=== PATIENT | male | born 1955 | race Caucasian/White ===

== ENCOUNTER 2018-01-04 06:24 | Day surgery (SDC) | payer MEDICARE ==
[~2018-01-04 06:24] MED LIST: BUPIVACAINE HCL 0.75% INJ/PF (7.5 MG/1 ML) 10 ML SDV OD PRN; KETOROLAC TROMETHAMINE 0.45% 4 DROP/0.4 ML DROPERETTE OD PRN; LIDOCAINE 4% INJ/PF (40 MG/ML) 5 ML AMPUL OD PRN
[2018-01-04] MEDS: CYCLOPENTOLATE 0.2%/PHENYLEPHRINE 1% OPH SOLN 2 ML OD PRN ×3 (07:00→07:25)
[2018-01-04] MEDS: TROPICAMIDE 1% OPH SOLN 3 ML OD PRN ×3 (07:00→07:25)
[2018-01-04] MEDS: TETRACAINE HCL 0.5% OPH SOLN 0.6 ML DROPERETTE OD PRN ×2 (07:00→07:25)
[2018-01-04] MEDS: BESIFLOXACIN HCL 0.6% OPH SUSP 5 ML BOTTLE OD PRN ×4 (07:00→08:00)
[2018-01-04] MEDS ORDERED: EPINEPHRINE INJ/PF 1 MG/1 ML AMPULE ONE ×2 (07:06→07:16)
[2018-01-04] MEDS ORDERED: LIDOCAINE 1% INJ-PF (10 MG/ML) 30 ML SDV ONE (07:06)
[2018-01-04] MEDS ORDERED: MIDAZOLAM 2 MG/2 ML INJ ONE (07:12)
[2018-01-04] MEDS: CHONDR SU A NA/HYALUR INTRAOC KIT (SURGICARE) ONE ×2 (07:51)
--- NOTE | 2018-01-04 10:31 | [facility] DISCHARGE SUMMARY E ---
[facility] Discharge Summary NAME: EULALIO LOBO AGE: 62Y ADMITTED: 01/04/2018 DISCHARGED: FINAL DIAGNOSIS: Cataract, right eye. HOSPITAL COURSE: The patient is a 62-year-old gentleman who underwent uneventful cataract extraction with intraocular lens implant, right eye on 01/04/2018. He will be discharged to home. He is instructed to resume preoperative medications, take Tylenol as needed for discomfort, to keep his eye shielded, to use Besivance, Durezol and Ilevro at 3 p.m. and 8 p.m., and to followup in my office in 1 day. DICTATING PHYSICIAN: JUWAN JOHNSON M.D. [id number] PHY#: [id number] ID: [id number] JOB#: [id number] ACCT: [id number] cc:JUWAN JOHNSON M.D. >
--- NOTE | 2018-01-04 10:31 | [facility] OPERATIVE REPORT E ---
[facility] Operative Report NAME: EULALIO LOBO AGE: 62Y DATE OF SURGERY: 01/04/2018 ROOM: [facility] Operative Report PREOPERATIVE DIAGNOSIS: CATARACT, RIGHT EYE. POSTOPERATIVE DIAGNOSIS: CATARACT, RIGHT EYE. PROCEDURE PERFORMED: PHACOEMULSIFICATION WITH POSTERIOR CHAMBER INTRAOCULAR LENS, RIGHT EYE. SURGEON: JUWAN JOHNSON MD ANESTHESIA: TOPICAL WITH MAC. INDICATIONS FOR SURGERY: Difficulty reading captions on T.V. and getting close to road signs. Best corrected visual acuity 20/40. PROCEDURE: The patient was brought to the Operating Room and placed on the operative table. Following tetracaine drops, topical anesthesia was administered. This consisted of instrument wipe pledgets soaked in a solution of 4% Xylocaine mixed with 0.75% Marcaine in a 1:2 ratio. A 2 x 1 cm pledget was placed in the superior fornix. A 1 x 1 cm pledget was placed in the inferior fornix. The eye was patched shut for 5 minutes. The patch was removed. The eye was sterilely prepped and draped in the usual manner. Lid speculum was placed in the eye. The pledgets were removed. A conjunctival peritomy was made at the 10 o'clock position. Hemostasis was obtained with bipolar cautery. A posterior limbal groove was created using a crescent knife and dissected anteriorly towards the cornea. A sharp point blade was used to create a paracentesis site at the 2 o'clock position. A 2.4 mm keratome was used to enter the anterior chamber through the groove. Viscoelastic was injected into the anterior chamber. An anterior capsulotomy was performed using Utrata forceps in a capsulorrhexis fashion. Hydrodissection and hydrodelineation were performed. Phacoemulsification was performed in evbubw-pby-skaikuh technique. A total of 1 minute 8 seconds phaco time was used. Following this, the I/A unit was used to remove residual cortex. Viscoelastic was injected into the capsular bag. Intraocular lens model [id number], 19.5 diopters, serial number [id number] was placed in the capsular bag. The I/A unit was used to remove residual viscoelastic. The wound was seen to be watertight under high and low pressure, and no sutures were placed. The intraocular lens was well centered. The pressure was adjusted in the eye to normal pressure. The 4-0 black silk sutures and lid speculum were removed. The eye was shielded after Besivance drops were placed. The patient tolerated the procedure well and was sent to the Recovery Room in good condition. DICTATING PHYSICIAN: JUWAN JOHNSON M.D. DICTATING PHYSICIAN: JUWAN JOHNSON M.D. [id number] PHY#: [id number] ID: [id number] JOB#: [id number] ACCT: [id number] cc:JUWAN JOHNSON M.D. > MTDD
== END 2018-01-04 08:38 | disposition home or self-care (01) ==
LOC: SC 06:24
PROVIDERS: ATTEND Ophthalmology
DX: H25.813 Combined forms of age-related cataract, bilateral (principal); E11.9 Type 2 diabetes mellitus without complications; H04.123 Dry eye syndrome of bilateral lacrimal glands; D31.31 Benign neoplasm of right choroid; I10 Essential (primary) hypertension; J44.9 Chronic obstructive pulmonary disease, unspecified; E78.00 Pure hypercholesterolemia, unspecified; F17.210 Nicotine dependence, cigarettes, uncomplicated; Z86.73 Personal history of transient ischemic attack (TIA), and cerebral infarction without residual deficits; I25.2 Old myocardial infarction; Z79.899 Other long term (current) drug therapy; Z79.02 Long term (current) use of antithrombotics/antiplatelets; Z88.8 Allergy status to other drugs, medicaments and biological substances; Z79.84 Long term (current) use of oral hypoglycemic drugs
CPT/HCPCS: 66984; 82962; V2632; J2250; J3490 ×4; A9270; J0171; 142

== ENCOUNTER 2018-12-05 21:33 | Inpatient (IN) | payer MEDICARE ==
[2018-12-05] MEDS ORDERED: ASPIRIN 81 MG TABLET, CHEWABLE PO ONE (21:52)
[2018-12-05] MEDS ORDERED: FUROSEMIDE INJ/PF 40 MG/4 ML SDV ONE (22:07)
[2018-12-05] MEDS ORDERED: NITROGLYCERIN 2% OINTMENT 1 GM PACKET ONE (22:09)
--- NOTE | 2018-12-05 22:17 | ER Document Report ---
ED General - General Chief Complaint: Chest Pain Stated Complaint: CHEST PAIN Time Seen by Provider: 12/05/18 22:12 Mode of Arrival: Wheelchair Information source: Patient, [facility] Records Notes: 63-year-old male with hypertension, hyperlipidemia, COPD, coronary artery disease, congestive heart failure, diabetes presents via private vehicle from home with complaint of shortness of breath and weakness. Patient states that he has been short of breath for approximately 1 week. Patient has had associated leg swelling. He denies any chest pain, fever, chills. He does admit to not eating or drinking for over the last several days. Patient does continue to use tobacco but denies the use of continuous oxygen. He states he has been compliant with his medications although he did not take his blood pressure medication tonight. TRAVEL OUTSIDE OF THE [place] IN LAST 30 DAYS: No - HPI Onset: Other Onset/Duration: Gradual, Persistent Quality of pain: No pain Severity: None Pain Level: Denies Associated symptoms: Nonproductive cough, Leg swelling, Shortness of breath, Weakness, Other - Abdominal distention. denies: Chest pain, Nausea, Vomiting Exacerbated by: Supine, Movement, Walking, Coughing, Deep breathing Relieved by: Denies Similar symptoms previously: Yes Recently seen / treated by doctor: No - Related Data Allergies/Adverse Reactions: BRILINTA Adverse Reaction (Verified 01/04/18 07:11) Dizziness Past Medical History - General Information source: Patient, Relative, [facility] Records - Social History Smoking Status: Current Every Day Smoker Cigarette use (# per day): Yes - 40 Smoking Education Provided: Yes - Smoking cessation counseling was provided for 4 minutes at the bedside Frequency of alcohol use: Former Drug Abuse: None Lives with: Alone Family History: Reviewed & Not Pertinent Patient has suicidal ideation: No Patient has homicidal ideation: No - Past Medical History Cardiac Medical History: Reports: Hx Heart Attack - 08/2016, Hx Hypertension Pulmonary Medical History: Reports: Hx COPD Denies: Hx Asthma Neurological Medical History: Reports: Hx Cerebrovascular Accident - 6-7 YRS AGO LEFT SIDE LOST FEELING,BETTER NOW. Denies: Hx Seizures GI Medical History: Denies: Hx Hepatitis, Hx Hiatal Hernia, Hx Ulcer Infectious Medical History: Denies: Hx Hepatitis Past Surgical History: Denies: Hx Open Heart Surgery, Hx Pacemaker Review of Systems - Review of Systems Constitutional: Weight gain EENT: denies: Difficulty swallowing Cardiovascular: Palpitations, Heart racing, Dyspnea, Lightheaded. denies: Chest pain Respiratory: Cough, Short of breath Gastrointestinal: Abdomen distended, Poor appetite, Poor fluid intake. denies: Nausea Genitourinary: Retention Male Genitourinary: No symptoms reported Musculoskeletal: Muscle stiffness Skin: Rash - Left axilla Hematologic/Lymphatic: No symptoms reported Neurological/Psychological: Weakness. denies: Headaches -: Yes All other systems reviewed and negative Physical Exam - Vital signs Vitals: Temp Pulse Resp BP Pulse Ox 97.3 F 154 H 32 H 141/86 H 88 L 12/05/18 21:38 12/05/18 21:38 12/05/18 21:38 12/05/18 21:38 12/05/18 21:38 Interpretation: Hypertensive, Tachycardic, Hypoxic, Tachypneic - Notes Notes: PHYSICAL EXAMINATION: GENERAL: Ill-appearing, morbidly obese, respiratory distress, pale HEAD: Atraumatic, normocephalic. EYES: Pupils equal round and reactive to light, extraocular movements intact, sc hayes anicteric, conjunctiva are normal. ENT: Nares patent, oropharynx clear without exudates. Moist mucous membranes. NECK: Normal range of motion, supple without lymphadenopathy LUNGS: Diminished breath sounds, tachypnea, hypoxia, increased work of breathing, on nasal cannula. HEART: Tachycardic, regular rhythm without murmurs ABDOMEN: Nontender but extremely distended abdomen no guarding, no rebound. No masses appreciated. Musculoskeletal: Normal range of motion, no pitting or edema. No cyanosis. NEUROLOGICAL: Cranial nerves grossly intact. Normal speech, normal gait. Normal sensory, motor exams PSYCH: Normal mood, normal affect. SKIN: Warm, Dry, normal turgor, no rashes or lesions noted. Course - Re-evaluation Re-evalutation: Laboratory 12/05/18 12/05/18 12/05/18 22:04 22:04 22:04 WBC RBC Hgb Hct MCV MCH MCHC RDW Plt Count Seg Neutrophils % Lymphocytes % Monocytes % Eosinophils % Basophils % Absolute Neutrophils Absolute Lymphocytes Absolute Monocytes Absolute Eosinophils Absolute Basophils PT 13.9 INR 1.02 APTT 106.4 H VBG pH VBG pCO2 VBG HCO3 VBG Base Excess Sodium 135.2 L Potassium 4.5 Chloride 93 L Carbon Dioxide 33 H Anion Gap 9 BUN 41 H Creatinine 1.37 H Est GFR ( Amer) > 60 Est GFR (Non-Af Amer) 52 L Glucose 120 H Lactic Acid Calcium 9.0 Total Bilirubin 0.8 Direct Bilirubin 0.3 Neonat Total Bilirubin Not Reportable Neonat Direct Bilirubin Not Reportable Neonat Indirect Bili Not Reportable AST 116 H ALT 146 H Alkaline Phosphatase 326 H Creatine Kinase 89 CK-MB (CK-2) 2.43 Troponin I 0.016 NT-Pro-B Natriuret Pep Total Protein 6.3 Albumin 3.8 12/05/18 12/05/18 12/05/18 22:04 22:04 22:04 WBC RBC Hgb Hct MCV MCH MCHC RDW Plt Count Seg Neutrophils % Lymphocytes % Monocytes % Eosinophils % Basophils % Absolute Neutrophils Absolute Lymphocytes Absolute Monocytes Absolute Eosinophils Absolute Basophils PT INR APTT VBG pH 7.29 L VBG pCO2 74.1 H* VBG HCO3 34.5 H VBG Base Excess 4.0 Sodium Potassium Chloride Carbon Dioxide Anion Gap BUN Creatinine Est GFR ( Amer) Est GFR (Non-Af Amer) Glucose Lactic Acid 1.5 Calcium Total Bilirubin Direct Bilirubin Neonat Total Bilirubin Neonat Direct Bilirubin Neonat Indirect Bili AST ALT Alkaline Phosphatase Creatine Kinase CK-MB (CK-2) Troponin I NT-Pro-B Natriuret Pep 1800 H Total Protein Albumin 12/06/18 00:02 WBC 14.0 H RBC 6.04 H Hgb 17.5 H Hct 53.5 H MCV 89 MCH 28.9 MCHC 32.6 RDW 15.3 H Plt Count 224 Seg Neutrophils % 81.1 H Lymphocytes % 10.4 L Monocytes % 7.1 Eosinophils % 0.5 Basophils % 0.9 Absolute Neutrophils 11.4 H Absolute Lymphocytes 1.5 Absolute Monocytes 1.0 Absolute Eosinophils 0.1 Absolute Basophils 0.1 PT INR APTT VBG pH VBG pCO2 VBG HCO3 VBG Base Excess Sodium Potassium Chloride Carbon Dioxide Anion Gap BUN Creatinine Est GFR ( Amer) Est GFR (Non-Af Amer) Glucose Lactic Acid Calcium Total Bilirubin Direct Bilirubin Neonat Total Bilirubin Neonat Direct Bilirubin Neonat Indirect Bili AST ALT Alkaline Phosphatase Creatine Kinase CK-MB (CK-2) Troponin I NT-Pro-B Natriuret Pep Total Protein Albumin Chest/Abdomen CTA 12/05/18 00:00 IMPRESSION: Diffuse fluid overloaded state with pleural effusions, ascites and anasarca. Cardiomegaly with no aortic dissection or aneurysm. No pulmonary embolus. No definite acute inflammatory process in the abdomen or pelvis. Chest X-Ray 12/05/18 21:52 IMPRESSION: Small bibasilar pneumonia-atelectasis and/or small right pleural effusion. Recommend CR/CT surveillance including at 7-12 weeks following initiation of any clinically warranted therapy. Abdomen/Pelvis CTA 12/05/18 22:29 IMPRESSION: Diffuse fluid overloaded state with pleural effusions, ascites and anasarca. Cardiomegaly with no aortic dissection or aneurysm. No pulmonary embolus. No definite acute inflammatory process in the abdomen or pelvis. Abdomen Ultrasound 12/05/18 22:50 IMPRESSION: Bilateral upper quadrant ascites. Temp Pulse Resp BP Pulse Ox 97.3 F 154 H 19 115/87 H 98 12/05/18 21:38 12/05/18 21:38 12/06/18 00:01 12/06/18 00:00 12/06/18 00:01 63-year-old male presents with shortness of breath and weakness that has been ongoing for several weeks. Vital signs reviewed and patient is tachypneic, tachycardic, hypoxic. Patient was 80% on room air. Patient denies continuous oxygen use at home but does admit to smoking 2 packs/cigarettes a day. Patient does have a history of hypertension, congestive heart failure and does state he has been compliant with his medication. He does receive his [facility] in [facility]. 12/05/18 22:12 Bedside ultrasound was performed and significant for diffuse B-lines in both lung mendoza indicative of interstitial edema. There is no pericardial effusion. EKG shows sinus tachycardia. Patient was initially hypoxic on room air but is now 98% on [address] patient on BiPAP. Although patient has a significantly distended belly no ascites was appreciated on bedside ultrasound. Nitropaste was placed, 40 mg of IV Lasix given. Patient received refusing Mares catheter. Patient was placed on BiPAP and VBG does show CO2 retention. BiPAP settings 12/6 at 40% oxygen. Respiratory rate at 10. On reevaluation patient is resting comfortably. Is agreeable to admission. I did speak to Dr. Monroe who has agreed to admit the patient to the [facility]. We have given the patient 0.25 mg of digoxin for his elevated heart rate. 12/06/18 00:56 - Vital Signs Vital signs: Temp Pulse Resp BP Pulse Ox 101.3 F H 116 H 13 123/80 92 12/07/18 19:26 12/07/18 18:00 12/07/18 18:15 12/07/18 18:15 12/07/18 18:15 - Laboratory Result Diagrams: 12/07/18 03:44 12/07/18 03:44 Laboratory results interpreted by me: 12/05/18 12/05/18 12/05/18 22:04 22:04 22:04 WBC RBC Hgb Hct RDW Seg Neutrophils % Lymphocytes % Absolute Neutrophils APTT 106.4 H VBG pH VBG pCO2 VBG HCO3 Sodium 135.2 L Chloride 93 L Carbon Dioxide 33 H BUN 41 H Creatinine 1.37 H Est GFR (Non-Af Amer) 52 L Glucose 120 H AST 116 H ALT 146 H Alkaline Phosphatase 326 H NT-Pro-B Natriuret Pep 1800 H Triglycerides 12/05/18 12/05/18 12/06/18 22:04 22:04 00:02 WBC 14.0 H RBC 6.04 H Hgb 17.5 H Hct 53.5 H RDW 15.3 H Seg Neutrophils % 81.1 H Lymphocytes % 10.4 L Absolute Neutrophils 11.4 H APTT VBG pH 7.29 L VBG pCO2 74.1 H* VBG HCO3 34.5 H Sodium Chloride Carbon Dioxide BUN Creatinine Est GFR (Non-Af Amer) Glucose AST ALT Alkaline Phosphatase NT-Pro-B Natriuret Pep Triglycerides 155 H - Diagnostic Test Radiology reviewed: Image reviewed, Reports reviewed - EKG Interpretation by Me EKG shows normal: Sinus rhythm Rate: Tachycardia Rhythm: NSR When compared to previous EKG there are: Previous EKG unavailable Critical Care Note - Critical Care Note Total time excluding time spent on procedures (mins): 40 - Minutes of critical care time spent in direct contact evaluating and reevaluating the patient, treating symptoms, reviewing labs and studies and speaking with family and consultants excluding any procedures Discharge - Discharge Clinical Impression: Respiratory distress, Elevated LFTs, Tachycardia, Respiratory acidosis, CO2 retention, Morbid obesity, DEAN (acute kidney injury) CHF exacerbation Qualifiers: Heart failure type: unspecified Qualified Code(s): I50.9 - Heart failure, unspecified Ascites Qualifiers: Ascites type: other type Qualified Code(s): R18.8 - Other ascites Condition: Fair Disposition: ADMITTED INPATIENT Admitting Provider: Fer (Hospitalist) Unit Admitted: [facility]
[2018-12-05 22:28] LABS: VENOUS BLOOD HCO3 34.5 mmol/L (20-32); VENOUS BLOOD PH 7.29 (7.30-7.42)
[2018-12-05 22:29] LABS: VENOUS BLOOD PCO2 74.1 mmHg (35-63)
[2018-12-05 22:31] LABS: INTERNATIONAL RATION (INR) 1.02; PROTHROMBIN TIME 13.9 SEC (11.4-15.4)
[2018-12-05 22:34] LABS: ALANINE AMINOTRANSFERASE 146 U/L (21-72); ALBUMIN 3.8 g/dL (3.5-5.0); ALKALINE PHOSPHATASE 326 U/L (38-126); ANION GAP 9 (5-19); ASPARTATE AMINO TRANSFERASE 116 U/L (17-59); BILIRUBIN,DIRECT 0.3 mg/dL (0.0-0.4); BILIRUBIN,TOTAL 0.8 mg/dL (0.2-1.3); BLOOD UREA NITROGEN 41 mg/dL (7-20); CARBON DIOXIDE 33 mmol/L (22-30); CHLORIDE 93 mmol/L (98-107); CREATINE KINASE 89 U/L (55-170); GLUCOSE 120 mg/dL (75-110); PARTIAL THROMBOPLASTIN TIME 106.4 SEC (23.5-35.8); POTASSIUM 4.5 mmol/L (3.6-5.0); SODIUM 135.2 mmol/L (137-145); TOTAL PROTEIN 6.3 g/dL (6.3-8.2)
--- NOTE | 2018-12-05 22:35 | RADIOLOGY REPORT (SQ) ---
EXAM DESCRIPTION: XR CHEST 1 VIEW COMPLETED DATE/TME: 12/05/2018 21:52 CLINICAL HISTORY: 63 years Male, cp COMPARISON: None. NUMBER OF VIEWS/TECHNIQUE: 1/AP FINDINGS: Small right basilar opacity-effusion. Small left lower retrocardiac opacity-atelectasis. Adequate lung volume, normal cardiac silhouette, and intact bony thorax. IMPRESSION: Small bibasilar pneumonia-atelectasis and/or small right pleural effusion. Recommend CR/CT surveillance including at 7-12 weeks following initiation of any clinically warranted therapy.
[2018-12-05 22:46] LABS: CREATINE KINASE MB 2.43 ng/mL (<4.55); TROPONIN I 0.016 ng/mL
--- NOTE | 2018-12-05 23:42 | EKG REPORT ---
SEVERITY:- ABNORMAL ECG - SINUS TACHYCARDIA LEFT POSTERIOR FASCICULAR BLOCK LOW VOLTAGE IN FRONTAL LEADS NONSPECIFIC T ABNORMALITIES, DIFFUSE LEADS BORDERLINE PROLONGED QT INTERVAL : Confirmed by: Ese Chavez MD 05-Dec-2018 23:42:16
--- NOTE | 2018-12-05 23:43 | RADIOLOGY REPORT (SQ) ---
CLINICAL HISTORY: pain COMPARISON: None. TECHNIQUE: CT ABDOMEN PELVIS WITHOUT THEN WITH IV CONTRAST, CT CHEST ANGIOGRAPHY WITHOUT THEN WITH IV CONTRAST on 12/05/2018 10:29 PM CDT. MIPS reconstructions were generated. This exam was performed according to our departmental dose-optimization program, which includes automated exposure control, adjustment of the mA and/or kV according to patient size and/or use of iterative reconstruction technique. FINDINGS: Vascular: Thoracic aorta is normal in course and caliber without aneurysm or dissection. Pulmonary arteries are adequately opacified without acute or chronic filling defects. Abdominal aorta is normal in course and caliber without aneurysm. Pelvic arteries are patent without aneurysm or occlusion. The heart is moderately enlarged. There is no pericardial effusion. Intrathoracic lymph nodes are not enlarged. There is a small left pleural effusion. There is a moderate right pleural effusion. Central airways are patent. There is bibasilar atelectasis. There may be mild component of pulmonary edema. Abdomen: The liver is normal in appearance. There is no biliary dilatation. Gallbladder is normal in appearance. There is bilateral upper quadrant ascites. The pancreas and spleen are normal in appearance. The adrenal glands and kidneys are unremarkable. There is no free air. There is no retroperitoneal adenopathy. Pelvis: There is no bowel obstruction. Urinary bladder is unremarkable. There is small to moderate amount of free pelvic fluid. There are bilateral fat-containing inguinal hernias, with small amount of fluid on the right as well. Appendix is normal. There is mild diffuse body wall anasarca. Skeleton: There are no acute osseous findings. No suspicious bony lesions. IMPRESSION: Diffuse fluid overloaded state with pleural effusions, ascites and anasarca. Cardiomegaly with no aortic dissection or aneurysm. No pulmonary embolus. No definite acute inflammatory process in the abdomen or pelvis.
[2018-12-06] MEDS ORDERED: FUROSEMIDE INJ/PF 40 MG/4 ML SDV IV ONE (00:09)
[2018-12-06] MEDS ORDERED: NITROGLYCERIN 2% OINTMENT 1 GM PACKET TP ONE (00:10)
[2018-12-06 00:11] LABS: ABSOLUTE BASOPHILS # (AUTO) 0.1 10^3/uL (0.0-0.2); ABSOLUTE EOSINOPHILS # (AUTO) 0.1 10^3/uL (0.0-0.6); ABSOLUTE LYMPHOCYTES (AUTO) 1.5 10^3/uL (0.5-4.7); ABSOLUTE NEUT (AUTO) 11.4 10^3/uL (1.7-8.2); BASOPHILS % (AUTO) 0.9 % (0-2); EOSINOPHILS % (AUTO) 0.5 % (0-6); HEMATOCRIT 53.5 % (37.9-51.0); HEMOGLOBIN 17.5 g/dL (13.5-17.0); LYMPHOCYTES % (AUTO) 10.4 % (13-45); MEAN CORPUSCULAR HEMOGLOBIN 28.9 pg (27.0-33.4); MEAN CORPUSCULAR HGB CONC 32.6 g/dL (32.0-36.0); MEAN CORPUSCULAR VOLUME 89 fl (80-97); MONOCYTES % (AUTO) 7.1 % (3-13); PLATELET COUNT 224 10^3/uL (150-450); RED BLOOD COUNT 6.04 10^6/uL (4.35-5.55); RED CELL DISTRIBUTION WIDTH 15.3 % (11.5-14.0); SEGMENTED NEUTROPHILS % (AUTO) 81.1 % (42-78); TOTAL CELLS COUNTED % (AUTO) 100 %
--- NOTE | 2018-12-06 00:41 | RADIOLOGY REPORT (SQ) ---
CLINICAL HISTORY: ruq pain assess for ascites COMPARISON: None. TECHNIQUE: US ABDOMEN LIMITED on 12/05/2018 10:50 PM CDT FINDINGS: Liver is enlarged and fatty in echogenicity. There is moderate ascites in the right upper and left upper quadrants. Gallbladder is normally distended without wall thickening or gallstones. Common bile duct measures 3 mm. Right kidney measures 12.7 cm without hydronephrosis. IMPRESSION: Bilateral upper quadrant ascites.
[2018-12-06] MEDS ORDERED: DIGOXIN INJ 0.5 MG/2 ML AMPULE IV ONE ×2 (00:52→05:17)
[2018-12-06] MEDS ORDERED: ONDANSETRON HCL INJ/PF 4 MG/2 ML SDV IV PRN (01:19)
[2018-12-06] MEDS ORDERED: DEXTROSE 50%-WATER 25 GM/50 ML DISP.SYRIN IV PRN ×4 (01:19→17:02)
[2018-12-06] MEDS ORDERED: GLUCAGON,HUMAN RECOMB 1 MG INJ IM PRN ×2 (01:19→17:02)
[2018-12-06] MEDS ORDERED: MAG HYDROX/AL HYDROX/SIMETH SUSP 30 ML UDCUP PO PRN (01:19)
[2018-12-06] MEDS ORDERED: MAGNESIUM HYDROXIDE SUSP 30 ML UDCUP PO PRN (01:19)
[2018-12-06] MEDS ORDERED: DEXTROSE 40% GEL 15 GM TUBE PO PRN ×4 (01:19→17:02)
[2018-12-06] MEDS ORDERED: ACETAMINOPHEN 325 MG TABLET PO PRN (01:28)
[2018-12-06] MEDS ORDERED: LEVALBUTEROL HCL NEB 0.63 MG/3 ML AMPUL NEB PRN (01:28)
[2018-12-06] MEDS ORDERED: MORPHINE SULFATE 10 MG/ML INJ IV PRN (01:28)
[2018-12-06 02:51] LABS: FREE T3 3.55 pg/mL (2.77-5.27); FREE T4 (FREE THYROXINE) 1.49 ng/dL (0.78-2.19)
[2018-12-06 03:05] LABS: THYROID STIMULATING HORMONE 2.63 uIU/mL (0.47-4.68)
[2018-12-06] MEDS ORDERED: METOPROLOL TARTRATE PF/INJ 5 MG/5 ML SDV IV ONE ×2 (03:33→14:08)
[2018-12-06 04:13] LABS: ARTERIAL BLOOD BASE EXCESS 4.1 mmol/L; ARTERIAL BLOOD H2CO3 2.55 mmol/L (1.05-1.35); ARTERIAL BLOOD HCO3 35.9 mmol/L (20-24); ARTERIAL BLOOD O2 SATURATION 92.9 % (94-98); ARTERIAL BLOOD PH 7.24 (7.35-7.45); ARTERIAL BLOOD PO2 78.7 mmHg (80-100); ARTERIAL BLOOD TOTAL CO2 38.5 mmol/L (23-27)
[2018-12-06 04:15] LABS: ARTERIAL BLOOD FIO2 6L
[2018-12-06 04:16] LABS: ARTERIAL BLOOD PCO2 84.8 mmHg (35-45)
--- NOTE | 2018-12-06 06:15 | PDOC H&P ---
History of Present Illness Admission Date/PCP: 12/06/2018 00:18 SOREN TSAI PA-C Patient complains of: Dyspnea History of Present Illness: EULALIO LOBO is a 63 year old male who presented to the emergency room with a one-week history of dyspnea. Patient admits that for the last week he has been experiencing progressively worsening dyspnea that has become severe today. He admits the associated symptoms of swelling of his lower legs, dyspnea on exertion and anorexia for the last 4 days. He admits prior similar episodes with exacerbations of his heart failure and COPD. He admits to continued heavy cigarette smoking. He has not identified any additional aggravating or ameliorating factors for his dyspnea. In the emergency room he was found to have an elevated BNP at 1800 and his chest x-ray was consistent with mild pulmonary edema and heart failure. He was also noted to be hypoxic, hypercapnic and tachycardic. He was placed on BiPAP and treated with topical nitroglycerin paste as well as IV Lasix. He was subsequently admitted to the hospital for further evaluation and treatment. Past Medical History Cardiac Medical History: Reports: Congestive Heart Failure, Coronary Artery Disease, Myocardial Infarction - 08/2016, Hyperlipidema, Hypertension Denies: Atrial Fibrillation, DVT, Pulmonary Embolism Pulmonary Medical History: Reports: Chronic Obstructive Pulmonary Disease (COPD), Respiratory Failure Denies: Asthma EENT Medical History: Reports: Cataracts, Eyes - Dry eye syndrome Denies: Ears - Hearing aids Neurological Medical History: Reports: Ischemic CVA Denies: Hemorrhagic CVA, Multiple Sclerosis, Seizures Endocrine Medical History: Reports: Diabetes Mellitus Type 2 Denies: Diabetes Mellitus Type 1, Hyperthyroidism, Hypothyroidism Renal/ Medical History: Denies: Chronic Kidney Disease, Nephrolithiasis Malignancy Medical History: Reports: None GI Medical History: Denies: Cirrhosis, Crohn's Disease, Hepatitis, Hiatal Hernia, Ulcerative Colitis Musculoskeltal Medical History: Reports: Arthritis Denies: Gout Skin Medical History: Denies: Eczema, Psoriasis Psychiatric Medical History: Reports: Tobacco Dependency Denies: Alcohol Dependency, Substance Abuse Traumatic Medical History: Reports: None Hematology: Denies: Anemia, Bleeding Tendencies Infectious Medical History: Reports: None Past Surgical History Past Surgical History: Reports: Cardiac Catheterization, Coronary Stent, Other - Cataract surgery Social History Information Source: Patient Lives with: Spouse/Significant other Smoking Status: Former Smoker Frequency of Alcohol Use: None Hx Recreational Drug Use: No Drugs: None Hx Prescription Drug Abuse: No - Advance Directive Resuscitation Status: Full Code Surrogate healthcare decision maker:: Yazmin May Family History Family History: DM, Hypertension, Malignancy Parental Family History Reviewed: Yes Children Family History Reviewed: No Sibling(s) Family History Reviewed.: Yes Medication/Allergy Home Medications: Aspirin [Aspirin EC] 81 mg PO DAILY 12/29/17 Besifloxacin HCl [Besivance 0.6% Oph Susp 5 ml] 1 drop OP ASDIR 12/29/17 Clopidogrel Bisulfate [Clopidogrel] 75 mg PO DAILY 12/29/17 Difluprednate [Durezol] 1 drop OP ASDIR 12/29/17 Losartan Potassium 25 mg PO QHS 12/29/17 Metformin HCl 1,000 mg PO BID 12/29/17 Metoprolol Succinate 12.5 mg PO DAILY 12/29/17 Rosuvastatin Calcium 20 mg PO QHS 12/29/17 Allergies/Adverse Reactions: BRILINTA Adverse Reaction (Verified 01/04/18 07:11) Dizziness Review of Systems Constitutional: PRESENT: as per HPI, anorexia. ABSENT: chills, fever(s) Eyes: ABSENT: visual disturbances, other - Eye pain Ears: ABSENT: hearing changes, other - Ear pain Nose, Mouth, and Throat: ABSENT: mouth pain, sore throat Cardiovascular: PRESENT: as per HPI, dyspnea on exertion, edema, orthropnea. ABSENT: chest pain, palpitations Respiratory: PRESENT: dyspnea. ABSENT: cough Gastrointestinal: ABSENT: abdominal pain, constipation, diarrhea, nausea, vomiting Genitourinary: ABSENT: dysuria, hematuria Musculoskeletal: ABSENT: back pain, joint swelling, muscle weakness Integumentary: ABSENT: pruritus, rash Neurological: ABSENT: confusion, convulsions, focal weakness, memory loss, syncope Psychiatric: ABSENT: anxiety, depression Endocrine: ABSENT: cold intolerance, heat intolerance Hematologic/Lymphatic: ABSENT: easy bleeding, easy bruising Physical Exam Vital Signs: Temp Pulse Resp BP Pulse Ox 97.3 F 154 H 19 115/87 H 98 12/05/18 21:38 12/05/18 21:38 12/06/18 00:01 12/06/18 00:00 12/06/18 00:01 Intake & Output 12/04/18 12/05/18 12/06/18 23:59 23:59 23:59 Weight 150 kg General appearance: PRESENT: no acute distress, cooperative, morbidly obese, other - On BiPAP Head exam: PRESENT: atraumatic, normocephalic Eye exam: ABSENT: conjunctival injection, scleral icterus Ear exam: PRESENT: normal external ear exam. ABSENT: bleeding, drainage Mouth exam: PRESENT: dry mucosa, neck supple Neck exam: PRESENT: JVD - Mild JVD at 30 degrees bilaterally. ABSENT: thyromegaly, tracheal deviation Respiratory exam: PRESENT: decreased breath sounds - Decreased breath sounds throughout all [place], prolonged expiratory phas - Minimally prolonged expiratory phase, rales - Bibasilar rales, symmetrical, wheezes - Minimal expiratory wheezes Cardiovascular exam: PRESENT: gallop - Faint S4 gallop, RRR. ABSENT: clicks, rubs Pulses: PRESENT: normal radial pulses, normal dorsalis pedis pul Vascular exam: PRESENT: normal capillary refill. ABSENT: pallor GI/Abdominal exam: PRESENT: normal bowel sounds, soft Rectal exam: PRESENT: deferred Extremities exam: PRESENT: pedal edema - Bilateral, other - 3+ pitting pretibial edema of the bilateral lower extremities. ABSENT: joint swelling Musculoskeletal exam: ABSENT: deformity, dislocation Neurological exam: PRESENT: alert, oriented to person, oriented to time, oriented to situation, CN II-XII grossly intact, motor sensory deficit Psychiatric exam: PRESENT: appropriate affect, normal mood Skin exam: PRESENT: dry, intact, warm. ABSENT: jaundice, rash, urticaria Results Laboratory Results: 12/06/18 00:02 12/05/18 22:04 12/05/18 12/05/18 12/05/18 22:04 22:04 22:04 WBC RBC Hgb Hct MCV MCH MCHC RDW Plt Count Seg Neutrophils % Lymphocytes % Monocytes % Eosinophils % Basophils % Absolute Neutrophils Absolute Lymphocytes Absolute Monocytes Absolute Eosinophils Absolute Basophils VBG pH 7.29 L VBG pCO2 74.1 H* VBG HCO3 34.5 H VBG Base Excess 4.0 Sodium 135.2 L Potassium 4.5 Chloride 93 L Carbon Dioxide 33 H Anion Gap 9 BUN 41 H Creatinine 1.37 H Est GFR ( Amer) > 60 Est GFR (Non-Af Amer) 52 L Glucose 120 H Lactic Acid 1.5 Calcium 9.0 Total Bilirubin 0.8 AST 116 H ALT 146 H Alkaline Phosphatase 326 H Total Protein 6.3 Albumin 3.8 12/06/18 00:02 WBC 14.0 H RBC 6.04 H Hgb 17.5 H Hct 53.5 H MCV 89 MCH 28.9 MCHC 32.6 RDW 15.3 H Plt Count 224 Seg Neutrophils % 81.1 H Lymphocytes % 10.4 L Monocytes % 7.1 Eosinophils % 0.5 Basophils % 0.9 Absolute Neutrophils 11.4 H Absolute Lymphocytes 1.5 Absolute Monocytes 1.0 Absolute Eosinophils 0.1 Absolute Basophils 0.1 VBG pH VBG pCO2 VBG HCO3 VBG Base Excess Sodium Potassium Chloride Carbon Dioxide Anion Gap BUN Creatinine Est GFR ( Amer) Est GFR (Non-Af Amer) Glucose Lactic Acid Calcium Total Bilirubin AST ALT Alkaline Phosphatase Total Protein Albumin 12/05/18 12/05/18 12/05/18 22:04 22:04 22:04 Creatine Kinase 89 CK-MB (CK-2) 2.43 Troponin I 0.016 NT-Pro-B Natriuret Pep 1800 H Impressions: Chest/Abdomen CTA 12/05/18 00:00 IMPRESSION: Diffuse fluid overloaded state with pleural effusions, ascites and anasarca. Cardiomegaly with no aortic dissection or aneurysm. No pulmonary embolus. No definite acute inflammatory process in the abdomen or pelvis. Chest X-Ray 12/05/18 21:52 IMPRESSION: Small bibasilar pneumonia-atelectasis and/or small right pleural effusion. Recommend CR/CT surveillance including at 7-12 weeks following initiation of any clinically warranted therapy. Abdomen/Pelvis CTA 12/05/18 22:29 IMPRESSION: Diffuse fluid overloaded state with pleural effusions, ascites and anasarca. Cardiomegaly with no aortic dissection or aneurysm. No pulmonary embolus. No definite acute inflammatory process in the abdomen or pelvis. Assessment and Plan - Diagnosis (1) Acute on chronic congestive heart failure Qualifiers: Heart failure type: unspecified Qualified Code(s): I50.9 - Heart failure, unspecified Is this a current diagnosis for this admission?: Yes Plan: Patient will be admitted to the ICU and will treat treated aggressively for his heart failure. His respiratory status will require BiPAP and/or possible intubation due to hypercapnia. Patient will receive diuretic therapy and intravenous morphine 2 mg every 2 hours as required for alleviation of his severe dyspnea and pulmonary edema. (2) Acute respiratory failure with hypoxia and hypercapnia Is this a current diagnosis for this admission?: Yes Plan: Patient will be admitted to the ICU and will be treated with BiPAP aggressively and if unable to reduce the patient's hypercapnia satisfactorily he will require intubation and ventilation. (3) Diabetes mellitus type 2 in obese Is this a current diagnosis for this admission?: Yes Plan: Patient's diabetes will be controlled with his usual diabetic regiment and a diabetic diet. He will have before meals and at bedtime Accu-Cheks and a sliding scale insulin dosage for hyperglycemia. Hemoglobin A1c will be checked to evaluate the patient's current therapy. (4) Hypertension Qualifiers: Hypertension type: essential hypertension Qualified Code(s): I10 - Essential (primary) hypertension Is this a current diagnosis for this admission?: Yes Plan: Patient will be continued on his current antihypertensive regiment if possible. Adjustments may be required for treatment of his heart failure and/or other associated problems. (5) Coronary artery disease Qualifiers: Coronary Disease-Associated Artery/Lesion type: [place] artery [place] vs. transplanted heart: [place] heart Associated angina: without angina Qualified Code(s): I25.10 - Atherosclerotic heart disease of [place] coronary artery without angina pectoris Is this a current diagnosis for this admission?: Yes Plan: Patient be continued on his usual cardiac medications with adjustments made only as required for treatment of his congestive heart failure or other associated problems. - Time Time Spent with patient: 25-34 minutes Medications reviewed and adjusted accordingly: Yes Anticipated discharge: Home - Inpatient Certification Based on my medical assessment, after consideration of the patient's comorbidities, presenting symptoms, or acuity I expect that the services needed warrant INPATIENT care.: Yes I certify that my determination is in accordance with my understanding of Medicare's requirements for reasonable and necessary INPATIENT services [42 CFR 412.3e].: Yes Medical Necessity: Significant Comorbidiites Make Outpatient Treatment Too Risky, Need Close Monitoring Due to Risk of Patient Decompensation, Need For Continuous Telemetry Monitoring, Need for Nebulizer Therapy and Monitoring of Response, Risk of Complication if Not Cared For in Hospital
--- NOTE | 2018-12-06 06:18 | ADVANCED CARE ---
- Diagnosis (1) Acute on chronic congestive heart failure Diagnosis Current: Yes (2) Acute respiratory failure with hypoxia and hypercapnia Diagnosis Current: Yes (3) Diabetes mellitus type 2 in obese Diagnosis Current: Yes (4) Hypertension Diagnosis Current: Yes (5) Coronary artery disease Diagnosis Current: Yes Attendance: Patient and myself Resuscitation Status: Full Code Discussion: Patient wishes to be a full code in the event of a cardiac or respiratory arrest during his hospital stay. Additionally he has chosen Yazmin May as his designated surrogate medical decision maker. Care Planning Goals: 1. Patient will be full CODE STATUS. 2. Yazmin May will be his designated surrogate medical decision maker. Document(s) Completed: The following entries will be made into the patient's permanent medical record and current medical orders via EMR entry: 1. Patient will be full CODE STATUS. 2. Yazmin May will be his designated surrogate medical decision maker. Time Spent: 10 minutes
[2018-12-06] MEDS: LEVALBUTEROL HCL NEB 1.25 MG/3 ML AMPUL NEB SCH ×2 (08:42→15:53)
[2018-12-06] MEDS: BUDESONIDE NEB 0.5 MG/2 ML AMPUL NEB SCH ×2 (08:42→20:57)
[2018-12-06] MEDS: IPRATROPIUM BROMIDE 0.02% NEB 0.5 MG/2.5 ML AMPUL NEB SCH ×2 (08:42→15:53)
[2018-12-06 09:35] LABS: ARTERIAL BLOOD BASE EXCESS 1.7 mmol/L; ARTERIAL BLOOD H2CO3 2.86 mmol/L (1.05-1.35); ARTERIAL BLOOD HCO3 34.8 mmol/L (20-24); ARTERIAL BLOOD O2 SATURATION 96.1 % (94-98); ARTERIAL BLOOD PO2 105.3 mmHg (80-100); ARTERIAL BLOOD TOTAL CO2 37.7 mmol/L (23-27)
[2018-12-06 09:36] LABS: ARTERIAL BLOOD FIO2 70%
[2018-12-06 09:37] LABS: ARTERIAL BLOOD PH 7.18 (7.35-7.45)
[2018-12-06] MEDS ORDERED: PROPOFOL 1,000 MG/100 ML INFUS..BTL IV ONE (09:53)
[2018-12-06 11:24] LABS: APPEARANCE,URINE SLIGHTLY-CLOUDY; BILIRUBIN,URINE NEGATIVE (NEGATIVE); COLOR,URINE YELLOW; GLUCOSE, URINE NEGATIVE (NEGATIVE); KETONES,URINE NEGATIVE (NEGATIVE); LEUKOCYTE ESTERASE,URINE NEGATIVE (NEGATIVE); NITRITE,URINE NEGATIVE (NEGATIVE); PROTEIN,URINE 30 mg/dL (NEGATIVE); URINE SPECIFIC GRAVITY 1.026; UROBILINOGEN,URINE NEGATIVE mg/dL (<2.0)
[2018-12-06] MEDS ORDERED: MIDAZOLAM HCL 50 MG/100 ML RTUINJ ONE (11:25)
[2018-12-06] MEDS ORDERED: SUCCINYLCHOLINE CHLORIDE INJ 200 MG/10 ML VIAL ONE (11:33)
--- NOTE | 2018-12-06 11:47 | RADIOLOGY REPORT (SQ) ---
EXAM DESCRIPTION: CHEST SINGLE VIEW; KUB/ABDOMEN (SINGLE VIEW) COMPLETED DATE/TIME: 12/06/2018 11:30 am REASON FOR STUDY: Post Intubation/ ET Tube Placement; NG Tube Placement COMPARISON: 12/05/2018 NUMBER OF VIEWS: Two views. TECHNIQUE: AP portable semi-upright view of chest and view of upper abdomen. . LIMITATIONS: None. FINDINGS: LUNGS AND PLEURA: Bilateral airspace disease. Increasing opacity in the left lower lobe. No pneumothorax. MEDIASTINUM AND HEART: Stable heart size and mediastinal structures. SUPPORT DEVICES: Nasogastric tube side hole distal esophagus. Recommend advancing about 7 cm. Appro priate position of endotracheal tube. BONY STRUCTURES: No acute findings. HARDWARE: None. OTHER: No other significant finding. IMPRESSION: 1. Slightly high position of nasogastric tube. Recommend advancing 6 to 7 cm. 2. Appropriate position of endotracheal tube. No pneumothorax. Reading location - IP/workstation name: [email or web address]
[2018-12-06 12:46] LABS: ARTERIAL BLOOD BASE EXCESS 5.2 mmol/L; ARTERIAL BLOOD H2CO3 1.63 mmol/L (1.05-1.35); ARTERIAL BLOOD HCO3 32.1 mmol/L (20-24); ARTERIAL BLOOD O2 SATURATION 93.9 % (94-98); ARTERIAL BLOOD PCO2 54.2 mmHg (35-45); ARTERIAL BLOOD PH 7.39 (7.35-7.45); ARTERIAL BLOOD PO2 71.1 mmHg (80-100); ARTERIAL BLOOD TOTAL CO2 33.7 mmol/L (23-27)
[2018-12-06 12:49] LABS: ARTERIAL BLOOD FIO2 60%
[2018-12-06] MEDS: DEXTROSE 5%-WATER 250 ML with PHENYLEPHRINE HCL 40 MG IV PRN ×2 (13:45)
[2018-12-06] MEDS ORDERED: CEFTRIAXONE 1 GM/D5W RTU 1 GM/50 ML RTUPB IV SCH (14:30)
[2018-12-06] MEDS: HEPARIN SOD (PORCINE) 5,000 UNIT/ML 1 ML SYRINGE SUBCUT SCH ×2 (14:31→14:54)
[2018-12-06] MEDS: FUROSEMIDE INJ/PF 20 MG/2 ML SDV IV SCH ×2 (14:38→21:34)
[2018-12-06] MEDS: DOCUSATE SODIUM 100 MG CAPSULE PO SCH ×2 (14:39→18:43)
[2018-12-06] MEDS: METFORMIN HCL 500 MG TABLET PO SCH ×2 (14:42→18:40)
[2018-12-06] MEDS: METOPROLOL SUCCINATE 25 MG TAB.SR.24H PO SCH (14:43)
[2018-12-06] MEDS: SPIRONOLACTONE 25 MG TABLET PO SCH (14:52)
[2018-12-06] MEDS: PREDNISONE 20 MG TABLET PO SCH (14:52)
[2018-12-06] MEDS: ASPIRIN 81 MG TABLET, ENT COATED PO SCH (14:52)
[2018-12-06] MEDS: CLOPIDOGREL BISULFATE 75 MG TABLET PO SCH (14:53)
[2018-12-06] MEDS: FAMOTIDINE 20 MG TABLET PO SCH ×2 (14:53→21:34)
[2018-12-06] MEDS ORDERED: DILTIAZEM HCL/D5W 125 MG/125 ML RTUINJ IV PRN ×2 (15:58→16:15)
--- NOTE | 2018-12-06 15:59 | RADIOLOGY REPORT (SQ) ---
EXAM DESCRIPTION: KUB/ABDOMEN (SINGLE VIEW) COMPLETED DATE/TIME: 12/06/2018 3:49 pm REASON FOR STUDY: NG Tube Placement COMPARISON: Earlier same day. NUMBER OF VIEWS: One view. TECHNIQUE: Supine radiographic image of the upper abdomen acquired. LIMITATIONS: None. FINDINGS: Nasogastric tube tip overlies the gastroesophageal junction. Recommend advancing 10 cm. Appearance otherwise unchanged. IMPRESSION: High position of nasogastric tube. Reading location - IP/workstation name: [email or web address]
[2018-12-06] MEDS ORDERED: ESMOLOL HCL/SOD CL 2,500 MG/250 ML RTUINJ IV ONE (16:37)
--- NOTE | 2018-12-06 17:29 | PDOC PROGRESS REPORT ---
Subjective Progress Note for:: 12/06/18 Subjective:: Assumed care. This is a 63-year-old male who was admitted earlier today. He has a past medical history of CHF with unknown EF and COPD. Initially presented with oh 1 week history of increasing shortness of breath. In the ER, he was noted to be hypoxic, hypercapnic and tachycardic. CT did show congestion. He was initially placed on BiPAP was also given topical nitro and IV Lasix. Upon encounter this morning in the ICU, patient was noted to be obtunded. He is not arousable to painful stimuli. Stat ABG showed worsening PCO2 of 94. Patient was promptly intubated due to worsening hypercapnic respiratory failure. He was initially tachycardic and hypertensive. He was started on propofol and started dropping his pressures. This was switched to Versed and he was also started on low-dose Jeancarlos-Synephrine. 2D echo was also ordered. Later this afternoon, patient went into atrial flutter. He was started on Cardizem drip. Cardiology was also consulted and recommended switching Cardizem drip to a small drip due to low EF and echo. Reason For Visit: ACUTE ON CHRONIC CONGESTIVE HEART FAILURE, ACUTE Physical Exam Vital Signs: Temp Pulse Resp BP Pulse Ox 100.2 F 159 H 20 89/66 L 100 12/06/18 13:35 12/06/18 14:00 12/06/18 14:00 12/06/18 14:00 12/06/18 14:00 Intake & Output 12/05/18 12/06/18 12/07/18 06:59 06:59 06:59 Intake Total 25 Output Total 235 Balance -210 Weight 330 lb 11.094 oz 332 lb 14.368 oz General appearance: PRESENT: other - Intubated, sedated Head exam: PRESENT: atraumatic, normocephalic Eye exam: PRESENT: conjunctiva pink, EOMI, PERRLA. ABSENT: scleral icterus Ear exam: PRESENT: normal external ear exam Neck exam: ABSENT: carotid bruit, JVD, lymphadenopathy, thyromegaly Respiratory exam: PRESENT: rales, rhonchi. ABSENT: wheezes Cardiovascular exam: PRESENT: RRR. ABSENT: diastolic murmur, rubs, systolic mu rmur Pulses: PRESENT: normal dorsalis pedis pul GI/Abdominal exam: PRESENT: normal bowel sounds, soft. ABSENT: distended, guarding, mass, organolmegaly, rebound, tenderness Rectal exam: PRESENT: deferred Extremities exam: PRESENT: +2 edema Neurological exam: PRESENT: other - Intubated, sedated Results Laboratory Results: 12/06/18 00:02 12/05/18 22:04 12/05/18 12/05/18 12/05/18 22:04 22:04 22:04 WBC RBC Hgb Hct MCV MCH MCHC RDW Plt Count Seg Neutrophils % Lymphocytes % Monocytes % Eosinophils % Basophils % Absolute Neutrophils Absolute Lymphocytes Absolute Monocytes Absolute Eosinophils Absolute Basophils Carbonic Acid HCO3/H2CO3 Ratio ABG pH ABG pCO2 ABG pO2 ABG HCO3 ABG O2 Saturation ABG Base Excess VBG pH 7.29 L VBG pCO2 74.1 H* VBG HCO3 34.5 H VBG Base Excess 4.0 FiO2 Sodium 135.2 L Potassium 4.5 Chloride 93 L Carbon Dioxide 33 H Anion Gap 9 BUN 41 H Creatinine 1.37 H Est GFR ( Amer) > 60 Est GFR (Non-Af Amer) 52 L Glucose 120 H Lactic Acid 1.5 Calcium 9.0 Total Bilirubin 0.8 AST 116 H ALT 146 H Alkaline Phosphatase 326 H Total Protein 6.3 Albumin 3.8 Triglycerides TSH Free T4 Free T3 pg/mL Urine Color Urine Appearance Urine pH Ur Specific [place] Urine Protein Urine Glucose (UA) Urine Ketones Urine Blood Urine Nitrite Ur Leukocyte Esterase Urine WBC (Auto) 12/05/18 12/05/18 12/06/18 22:04 22:04 00:02 WBC 14.0 H RBC 6.04 H Hgb 17.5 H Hct 53.5 H MCV 89 MCH 28.9 MCHC 32.6 RDW 15.3 H Plt Count 224 Seg Neutrophils % 81.1 H Lymphocytes % 10.4 L Monocytes % 7.1 Eosinophils % 0.5 Basophils % 0.9 Absolute Neutrophils 11.4 H Absolute Lymphocytes 1.5 Absolute Monocytes 1.0 Absolute Eosinophils 0.1 Absolute Basophils 0.1 Carbonic Acid HCO3/H2CO3 Ratio ABG pH ABG pCO2 ABG pO2 ABG HCO3 ABG O2 Saturation ABG Base Excess VBG pH VBG pCO2 VBG HCO3 VBG Base Excess FiO2 Sodium Potassium Chloride Carbon Dioxide Anion Gap BUN Creatinine Est GFR ( Amer) Est GFR (Non-Af Amer) Glucose Lactic Acid Calcium Total Bilirubin AST ALT Alkaline Phosphatase Total Protein Albumin Triglycerides 155 H TSH 2.63 Free T4 1.49 Free T3 pg/mL 3.55 Urine Color Urine Appearance Urine pH Ur Specific [place] Urine Protein Urine Glucose (UA) Urine Ketones Urine Blood Urine Nitrite Ur Leukocyte Esterase Urine WBC (Auto) 12/06/18 12/06/18 12/06/18 03:24 03:38 09:10 WBC RBC Hgb Hct MCV MCH MCHC RDW Plt Count Seg Neutrophils % Lymphocytes % Monocytes % Eosinophils % Basophils % Absolute Neutrophils Absolute Lymphocytes Absolute Monocytes Absolute Eosinophils Absolute Basophils Carbonic Acid 2.55 H 2.86 H HCO3/H2CO3 Ratio 14:1 12:1 ABG pH 7.24 L 7.18 L* ABG pCO2 84.8 H* 95.0 H* ABG pO2 78.7 L 105.3 H ABG HCO3 35.9 H 34.8 H ABG O2 Saturation 92.9 L 96.1 ABG Base Excess 4.1 1.7 VBG pH VBG pCO2 VBG HCO3 VBG Base Excess FiO2 6L 70% Sodium Potassium Chloride Carbon Dioxide Anion Gap BUN Creatinine Est GFR ( Amer) Est GFR (Non-Af Amer) Glucose Lactic Acid Calcium Total Bilirubin AST ALT Alkaline Phosphatase Total Protein Albumin Triglycerides TSH Free T4 Free T3 pg/mL Urine Color YELLOW Urine Appearance SLIGHTLY-CLOUDY Urine pH 5.0 Ur Specific [place] 1.026 Urine Protein 30 H Urine Glucose (UA) NEGATIVE Urine Ketones NEGATIVE Urine Blood SMALL H Urine Nitrite NEGATIVE Ur Leukocyte Esterase NEGATIVE Urine WBC (Auto) 3 12/06/18 12:25 WBC RBC Hgb Hct MCV MCH MCHC RDW Plt Count Seg Neutrophils % Lymphocytes % Monocytes % Eosinophils % Basophils % Absolute Neutrophils Absolute Lymphocytes Absolute Monocytes Absolute Eosinophils Absolute Basophils Carbonic Acid 1.63 H HCO3/H2CO3 Ratio 19:1 ABG pH 7.39 ABG pCO2 54.2 H ABG pO2 71.1 L ABG HCO3 32.1 H ABG O2 Saturation 93.9 L ABG Base Excess 5.2 VBG pH VBG pCO2 VBG HCO3 VBG Base Excess FiO2 60% Sodium Potassium Chloride Carbon Dioxide Anion Gap BUN Creatinine Est GFR ( Amer) Est GFR (Non-Af Amer) Glucose Lactic Acid Calcium Total Bilirubin AST ALT Alkaline Phosphatase Total Protein Albumin Triglycerides TSH Free T4 Free T3 pg/mL Urine Color Urine Appearance Urine pH Ur Specific [place] Urine Protein Urine Glucose (UA) Urine Ketones Urine Blood Urine Nitrite Ur Leukocyte Esterase Urine WBC (Auto) 12/05/18 12/05/18 12/05/18 22:04 22:04 22:04 Creatine Kinase 89 CK-MB (CK-2) 2.43 Troponin I 0.016 NT-Pro-B Natriuret Pep 1800 H Impressions: Chest/Abdomen CTA 12/05/18 00:00 IMPRESSION: Diffuse fluid overloaded state with pleural effusions, ascites and anasarca. Cardiomegaly with no aortic dissection or aneurysm. No pulmonary embolus. No definite acute inflammatory process in the abdomen or pelvis. Abdomen/Pelvis CTA 12/05/18 22:29 IMPRESSION: Diffuse fluid overloaded state with pleural effusions, ascites and anasarca. Cardiomegaly with no aortic dissection or aneurysm. No pulmonary embolus. No definite acute inflammatory process in the abdomen or pelvis. Abdomen Ultrasound 12/05/18 22:50 IMPRESSION: Bilateral upper quadrant ascites. Chest X-Ray 12/06/18 10:12 IMPRESSION: 1. Slightly high position of nasogastric tube. Recommend advancing 6 to 7 cm. 2. Appropriate position of endotracheal tube. No pneumothorax. Assessment and Plan - Diagnosis (1) Acute respiratory failure with hypoxia and hypercapnia Is this a current diagnosis for this admission?: Yes Plan: Acute hypoxic respiratory failure is likely more from CHF exacerbation although there is a possible component of COPD exacerbation contributing to hypercapnia. Patient failed BiPAP therapy and is now intubated. Repeat ABG. (2) Acute on chronic congestive heart failure Qualifiers: Heart failure type: unspecified Qualified Code(s): I50.9 - Heart failure, unspecified Is this a current diagnosis for this admission?: Yes Plan: Continue IV Lasix. (3) Atrial flutter Is this a current diagnosis for this admission?: Yes Plan: Cardizem drip switched to esmolol drip. Appreciate cardio recommendations. CT head ordered. If this comes back negative, patient will be started on Lovenox. (4) Coronary artery disease Qualifiers: Coronary Disease-Associated Artery/Lesion type: [place] artery [place] vs. transplanted heart: [place] heart Associated angina: without angina Qualified Code(s): I25.10 - Atherosclerotic heart disease of [place] coronary artery without angina pectoris Is this a current diagnosis for this admission?: Yes Plan: Continue aspirin and statin. (5) Diabetes mellitus type 2 in obese Is this a current diagnosis for this admission?: Yes Plan: Continue Accu-Cheks. Sliding scale for now. - Time Time Spent with patient: 25-34 minutes
--- NOTE | 2018-12-06 17:50 | XCELERA REPORT ---
[address] [address] Transthoracic Echocardiogram Report Name: EULALIO LOBO Age: 63 yrs Gender: Male : 1955 Patient Status: Inpatient Patient Location: ICU^603^A Study Date: 12/06/2018 04:33 PM Height: 67 in Weight: 332 lb BSA: 2.5 m2 Procedure: A complete two-dimensional transthoracic echocardiogram was performed (2D, M-mode, spectral and color flow Doppler). The study was technically difficult with many images being suboptimal in quality. There was technical limitations during this study due to patients body habitas. Reason For Study: acute pulmonary edema Ordering Physician: LUZ MARIA PIEK Performed By: Kiara Hinds Interpretation Summary Study quality suboptima with some poor images secondary to patient's body habitus. Lack of contrast opacification limits evaluation for wall motion, intracardiac mass or thrombus. Difficult to accurately assess LVEF in patient with atrial fibrillation with varying ventricular rate and at HR>130 bpm EF appears seeverly decreased but once HR < 120 bpm LVEF visually estimated at 35-40%. RV systolc function appears mild to moderately decreased. The transmitral spectral Doppler flow pattern is abnormal for age The left atrium is borderline dilated. The aortic valve is not well visualized but apppears focally thickened/ calcified with doppler data provided of suggestive of any significant stenosis. There is a mild amount of tricuspid regurgitation There is no pericardial effusion. IVC dilated with decreased respiratory variation as patient on ventilator support. The aortic root is normal size. MMode/2D Measurements & Calculations RVDd: 3.8 cm LVIDd: 5.7 cm FS: 14.9 % Ao root diam: IVSd: 1.0 cm LVIDs: 4.8 cm EDV(Teich): 3.6 cm 159.7 ml Ao root area: LVPWd: 1.0 cm ESV(Teich): 9.9 cm2 109.9 ml LA dimension: EF(Teich): 31.2 % 4.2 cm LVLd ap4: 10.3 cm SV(MOD-sp4): EDV(MOD-sp4): 57.0 ml 148.0 ml LVLs ap4: 8.5 cm ESV(MOD-sp4): 91.0 ml EF(MOD-sp4): 38.5 % Doppler Measurements & Calculations MV E max thanh: MV P1/2t max thanh: Ao V2 max: LV V1 max P.2 cm/sec 92.2 cm/sec 135.5 cm/sec 5.5 mmHg MV P1/2t: 45.4 msec Ao max P.3 mmHg LV V1 max: MVA(P1/2t): 4.8 cm2 117.3 cm/sec MV dec slope: 595.3 cm/sec2 MV dec time: 0.14 sec PA V2 max: TR max thanh: MV P1/2t-pr_phl: 51.5 cm/sec 234.6 cm/sec 45.4 msec PA max PG: TR max P.0 mmHg 1.1 mmHg Left Ventricle The left ventricle is borderline dilated. LV EF is 35-40%. Left ventricular systolic function is moderately reduced. The transmitral spectral Doppler flow pattern is abnormal for age. Right Ventricle The right ventricular systolic function is mild to moderately reduced. Atria The right atrium is normal. The left atrium is borderline dilated. Mitral Valve The mitral valve leaflets appear thickened, but open well. There is mild mitral leaflet calcification. There is a trace to mild amount of mitral regurgitation. Aortic Valve The aortic valve is calcified. The aortic valve is not well visualized secondary to technical limitations. There is a peak gradient of 7 mm of Hg. Tricuspid Valve The tricuspid valve is not well visualized secondary to technical limitations. There is a mild amount of tricuspid regurgitation. RVSP could not be estimated. Pulmonic Valve The pulmonic valve is not well visualized. Great Vessels The aortic root is not well visualized. The aortic root is normal size. IVC dilated with decreased respiratory variation as patient on ventilator support. Effusions There is no pericardial effusion. : LUZ MARIA PIKE > William Reilly
--- NOTE | 2018-12-06 18:35 | PDOC CONSULTATION ---
Consultation Consult Date: 12/06/18 Provider Consulted: LUZ MARIA PIKE Consult reason:: atrial fibrillation/flutter History of Present Illness Admission Date/PCP: 12/06/18 01:20 SOREN TSAI PA-C History of Present Illness: EULALIO LOBO is a 63 year old male With medical history of diabetes mellitus, hypertension, coronary artery disease status post inferior ST elevation HI in August 2016 with occluded proximal RCA status post PCI, ischemic cardiomyopathy with EF of 35 to 40%, hypertension, morbid obesity, COPD no history of chronic cigarette smoking was admitted with progressive shortness of breath and weakness for the past 1 week. Earlier in the day patient got intubated for hypercapnic respiratory failure. We were consulted for management of atrial fibrillation flutter with hypotension. Patient seen at bedside and currently on ventilator support. Patient's sister is at bedside was his current healthcare proxy. According to the sister patient lives by himself and is a very private person. She claims that he has had swelling in his lower extremities for quite a while and has been progressively getting short of breath. There is previous history of alcohol use but no recent alcohol intoxication or recreational drug use. No family history available at this point of time. According to sister patient has a history of CVA few years ago with left-sided numbness and tingling with loss of sensation. Past Medical History Cardiac Medical History: Reports: Congestive Heart Failure, Coronary Artery Disease, Myocardial Infarction - 08/2016, Hyperlipidema, Hypertension Denies: Atrial Fibrillation, DVT, Pulmonary Embolism Pulmonary Medical History: Reports: Chronic Obstructive Pulmonary Disease (COPD), Respiratory Failure Denies: Asthma EENT Medical History: Reports: Cataracts, Eyes - Dry eye syndrome Denies: Ears - Hearing aids Neurological Medical History: Reports: Ischemic CVA Denies: Hemorrhagic CVA, Multiple Sclerosis, Seizures Endocrine Medical History: Reports: Diabetes Mellitus Type 2 Denies: Diabetes Mellitus Type 1, Hyperthyroidism, Hypothyroidism Renal/ Medical History: Denies: Chronic Kidney Disease, Nephrolithiasis Malignancy Medical History: Reports: None GI Medical History: Denies: Cirrhosis, Crohn's Disease, Hepatitis, Hiatal Hernia, Ulcerative Colitis Musculoskeltal Medical History: Reports: Arthritis Denies: Gout Skin Medical History: Denies: Eczema, Psoriasis Psychiatric Medical History: Reports: Tobacco Dependency Denies: Alcohol Dependency, Substance Abuse Traumatic Medical History: Reports: None Hematology: Denies: Anemia, Sickle Cell Disease, Bleeding Tendencies Infectious Medical History: Reports: None Past Surgical History Past Surgical History: Reports: Cardiac Catheterization, Coronary Stent, Other - Cataract surgery Denies: Pacemaker Social History Information Source: Relative Lives with: Alone, Spouse/Significant other Smoking Status: Current Every Day Smoker Cigarettes Packs Per Day: 1 Cigars Per Day: 0 Pipes Per Day: 0 Number of Years Smokin Last Time Smoked: 12/05/18 Frequency of Alcohol Use: Rare Hx Recreational Drug Use: No Drugs: None Hx Prescription Drug Abuse: No - Advance Directive Resuscitation Status: Full Code Family History Family History: DM, Hypertension, Malignancy Parental Family History Reviewed: No Children Family History Reviewed: No Sibling(s) Family History Reviewed.: Yes Medication/Allergy Home Medications: Clopidogrel Bisulfate [Clopidogrel] 75 mg PO DAILY 12/29/17 Losartan Potassium 25 mg PO QHS 12/29/17 Metformin HCl 1,000 mg PO BID 12/29/17 Metoprolol Succinate 12.5 mg PO DAILY 12/29/17 Rosuvastatin Calcium 20 mg PO QHS 12/29/17 Furosemide [Lasix 40 mg Tablet] 40 mg PO QAM 12/06/18 Allergies/Adverse Reactions: BRILINTA Adverse Reaction (Verified 01/04/18 07:11) Dizziness Review of Systems Constitutional: PRESENT: weakness Cardiovascular: PRESENT: dyspnea on exertion, edema, orthropnea Respiratory: PRESENT: dyspnea Neurological: PRESENT: confusion Physical Exam Vital Signs: Temp Pulse Resp BP Pulse Ox 100.8 F H 120 H 20 115/74 96 12/06/18 17:20 12/06/18 16:00 12/06/18 17:20 12/06/18 17:20 12/06/18 17:20 Intake & Output 12/05/18 12/06/18 12/07/18 06:59 06:59 06:59 Intake Total 40 Output Total 535 Balance -495 Weight 150 kg 151 kg General appearance: PRESENT: morbidly obese, other - Patient on mechanical ventilator support at this time. Head exam: PRESENT: other - ET tube and NG tube in situ. Neck exam: PRESENT: other - Short obese neck. JVD not visualized. Respiratory exam: PRESENT: other - Bilateral air entry decreased at bases with occasional cramps. Morbidly obese chest wall. Cardiovascular exam: PRESENT: irregular rhythm, tachycardia Pulses: PRESENT: other - Distal pedal pulses not palpable. Cold lower extremities with no skin discoloration noted. GI/Abdominal exam: PRESENT: soft, other - Morbidly obese abdomen. Bowel sounds faintly positive. Extremities exam: PRESENT: +2 edema Neurological exam: PRESENT: other - Patient currently sedated but moves extremities randomly. Results Laboratory Results: 12/06/18 00:02 12/05/18 22:04 12/05/18 12/05/18 12/05/18 22:04 22:04 22:04 WBC RBC Hgb Hct MCV MCH MCHC RDW Plt Count Seg Neutrophils % Lymphocytes % Monocytes % Eosinophils % Basophils % Absolute Neutrophils Absolute Lymphocytes Absolute Monocytes Absolute Eosinophils Absolute Basophils Carbonic Acid HCO3/H2CO3 Ratio ABG pH ABG pCO2 ABG pO2 ABG HCO3 ABG O2 Saturation ABG Base Excess VBG pH 7.29 L VBG pCO2 74.1 H* VBG HCO3 34.5 H VBG Base Excess 4.0 FiO2 Sodium 135.2 L Potassium 4.5 Chloride 93 L Carbon Dioxide 33 H Anion Gap 9 BUN 41 H Creatinine 1.37 H Est GFR ( Amer) > 60 Est GFR (Non-Af Amer) 52 L Glucose 120 H Lactic Acid 1.5 Calcium 9.0 Total Bilirubin 0.8 AST 116 H ALT 146 H Alkaline Phosphatase 326 H Total Protein 6.3 Albumin 3.8 Triglycerides TSH Free T4 Free T3 pg/mL Urine Color Urine Appearance Urine pH Ur Specific [place] Urine Protein Urine Glucose (UA) Urine Ketones Urine Blood Urine Nitrite Ur Leukocyte Esterase Urine WBC (Auto) 12/05/18 12/05/18 12/06/18 22:04 22:04 00:02 WBC 14.0 H RBC 6.04 H Hgb 17.5 H Hct 53.5 H MCV 89 MCH 28.9 MCHC 32.6 RDW 15.3 H Plt Count 224 Seg Neutrophils % 81.1 H Lymphocytes % 10.4 L Monocytes % 7.1 Eosinophils % 0.5 Basophils % 0.9 Absolute Neutrophils 11.4 H Absolute Lymphocytes 1.5 Absolute Monocytes 1.0 Absolute Eosinophils 0.1 Absolute Basophils 0.1 Carbonic Acid HCO3/H2CO3 Ratio ABG pH ABG pCO2 ABG pO2 ABG HCO3 ABG O2 Saturation ABG Base Excess VBG pH VBG pCO2 VBG HCO3 VBG Base Excess FiO2 Sodium Potassium Chloride Carbon Dioxide Anion Gap BUN Creatinine Est GFR ( Amer) Est GFR (Non-Af Amer) Glucose Lactic Acid Calcium Total Bilirubin AST ALT Alkaline Phosphatase Total Protein Albumin Triglycerides 155 H TSH 2.63 Free T4 1.49 Free T3 pg/mL 3.55 Urine Color Urine Appearance Urine pH Ur Specific [place] Urine Protein Urine Glucose (UA) Urine Ketones Urine Blood Urine Nitrite Ur Leukocyte Esterase Urine WBC (Auto) 12/06/18 12/06/18 12/06/18 03:24 03:38 09:10 WBC RBC Hgb Hct MCV MCH MCHC RDW Plt Count Seg Neutrophils % Lymphocytes % Monocytes % Eosinophils % Basophils % Absolute Neutrophils Absolute Lymphocytes Absolute Monocytes Absolute Eosinophils Absolute Basophils Carbonic Acid 2.55 H 2.86 H HCO3/H2CO3 Ratio 14:1 12:1 ABG pH 7.24 L 7.18 L* ABG pCO2 84.8 H* 95.0 H* ABG pO2 78.7 L 105.3 H ABG HCO3 35.9 H 34.8 H ABG O2 Saturation 92.9 L 96.1 ABG Base Excess 4.1 1.7 VBG pH VBG pCO2 VBG HCO3 VBG Base Excess FiO2 6L 70% Sodium Potassium Chloride Carbon Dioxide Anion Gap BUN Creatinine Est GFR ( Amer) Est GFR (Non-Af Amer) Glucose Lactic Acid Calcium Total Bilirubin AST ALT Alkaline Phosphatase Total Protein Albumin Triglycerides TSH Free T4 Free T3 pg/mL Urine Color YELLOW Urine Appearance SLIGHTLY-CLOUDY Urine pH 5.0 Ur Specific [place] 1.026 Urine Protein 30 H Urine Glucose (UA) NEGATIVE Urine Ketones NEGATIVE Urine Blood SMALL H Urine Nitrite NEGATIVE Ur Leukocyte Esterase NEGATIVE Urine WBC (Auto) 3 12/06/18 12:25 WBC RBC Hgb Hct MCV MCH MCHC RDW Plt Count Seg Neutrophils % Lymphocytes % Monocytes % Eosinophils % Basophils % Absolute Neutrophils Absolute Lymphocytes Absolute Monocytes Absolute Eosinophils Absolute Basophils Carbonic Acid 1.63 H HCO3/H2CO3 Ratio 19:1 ABG pH 7.39 ABG pCO2 54.2 H ABG pO2 71.1 L ABG HCO3 32.1 H ABG O2 Saturation 93.9 L ABG Base Excess 5.2 VBG pH VBG pCO2 VBG HCO3 VBG Base Excess FiO2 60% Sodium Potassium Chloride Carbon Dioxide Anion Gap BUN Creatinine Est GFR ( Amer) Est GFR (Non-Af Amer) Glucose Lactic Acid Calcium Total Bilirubin AST ALT Alkaline Phosphatase Total Protein Albumin Triglycerides TSH Free T4 Free T3 pg/mL Urine Color Urine Appearance Urine pH Ur Specific [place] Urine Protein Urine Glucose (UA) Urine Ketones Urine Blood Urine Nitrite Ur Leukocyte Esterase Urine WBC (Auto) 12/05/18 12/05/18 12/05/18 22:04 22:04 22:04 Creatine Kinase 89 CK-MB (CK-2) 2.43 Troponin I 0.016 NT-Pro-B Natriuret Pep 1800 H Impressions: Chest/Abdomen CTA 12/05/18 00:00 IMPRESSION: Diffuse fluid overloaded state with pleural effusions, ascites and anasarca. Cardiomegaly with no aortic dissection or aneurysm. No pulmonary embolus. No definite acute inflammatory process in the abdomen or pelvis. Abdomen/Pelvis CTA 12/05/18 22:29 IMPRESSION: Diffuse fluid overloaded state with pleural effusions, ascites and anasarca. Cardiomegaly with no aortic dissection or aneurysm. No pulmonary embolus. No definite acute inflammatory process in the abdomen or pelvis. Abdomen Ultrasound 12/05/18 22:50 IMPRESSION: Bilateral upper quadrant ascites. Chest X-Ray 12/06/18 10:12 IMPRESSION: 1. Slightly high position of nasogastric tube. Recommend advancing 6 to 7 cm. 2. Appropriate position of endotracheal tube. No pneumothorax. KUB X-Ray 12/06/18 15:18 IMPRESSION: High position of nasogastric tube. Assessment & Plan - Diagnosis (2) Acute on chronic congestive heart failure Qualifiers: Heart failure type: unspecified Qualified Code(s): I50.9 - Heart failure, unspecified Is this a current diagnosis for this admission?: Yes (4) Diabetes mellitus type 2 in obese Is this a current diagnosis for this admission?: Yes (6) Coronary artery disease Qualifiers: Coronary Disease-Associated Artery/Lesion type: [place] artery [place] vs. transplanted heart: iroquois heart Associated angina: without angina Qualified Code(s): I25.10 - Atherosclerotic heart disease of [place]ro[place] coronary artery without angina pectoris Is this a current diagnosis for this admission?: Yes - Notes Notes: 63-year-old morbidly obese male with past medical history of CAD status post PCI 2017, COPD, chronic cigarette smoking, diabetes, hypertension admitted with acute on chronic respiratory failure with hypotension in the setting of atrial fibrillation with rapid ventricular rate. According to staff patient did have altered mental status before he got intubated. Current plan is for CAT scan of the head to rule out CVA and subsequently starting him on systemic anticoagulation for elevated chads 2 Vasc with increased risk of embolic complications in setting of atrial fibrillation. Echocardiogram done shows LVEF around 35 to 40%. Switch patient from Cardizem drip to esmolol for rate control in the setting of LV systolic dysfunction and will recommend gradual tapering of Jeancarlos-Synephrine drip once hypotension continues to improve with better rate control. Case discussed with primary care physician and patient on antibiotic coverage for possible sepsis component. Recommend close monitoring of intake output with IV diuresis as tolerated. Dr. Chavez will resume cardiology care in the morning for patient. If patient becomes hemodynamically unstable with atrial fibrillation then we will have to consider DC cardioversion. Prognosis is guarded in view of multiple comorbidities and has been explained to patient's sister. Recommend resumption of guideline directed heart failure therapy patient on as outpatient once clinical condition improves. - Time Time Spent: Greater than 70 Minutes
--- NOTE | 2018-12-06 18:41 | RADIOLOGY REPORT (SQ) ---
EXAM DESCRIPTION: CT HEAD WITHOUT COMPLETED DATE/TIME: 12/06/2018 6:30 pm REASON FOR STUDY: ams COMPARISON: None. TECHNIQUE: Axial images acquired through the brain without intravenous contrast. Images reviewed wi th bone, brain and subdural windows. Additional sagittal and coronal reconstructions were generated. Images stored on PACS. All CT scanners at this facility use dose modulation, iterative reconstruction, and/or weight based d osing when appropriate to reduce radiation dose to as low as reasonably achievable (ALARA). [facility]: Dose Right [facility]: CareDose [facility]: Dose Right [facility]: Teradose 4D [facility]: Smart HOSTEX RADIATION DOSE: CT Rad equipment meets quality standard of care and radiation dose reduction techniq ues were employed. CTDIvol: 53.2 mGy. DLP: 1044 mGy-cm. mGy. LIMITATIONS: None. FINDINGS: VENTRICLES: Normal size and contour. CEREBRUM: No masses. No hemorrhage. No midline shift. No evidence for acute infarction. There is a large area of decreased attenuation in the left middle cranial fossa. Few scattered areas of low de nsity in the white matter most likely chronic small vessel ischemic changes. CEREBELLUM: No masses. No hemorrhage. No alteration of density. No evidence for acute infarction. EXTRAAXIAL SPACES: No fluid collections. No masses. ORBITS AND GLOBE: No intra- or extraconal masses. Normal contour of globe without masses. CALVARIUM: No fracture. PARANASAL SINUSES: There is opacification of ethmoid air cells and sphenoid sinuses and to a mild deg ree the right maxillary sinus. There is considerable opacification in the nasal passages. SOFT TISSUES: No mass or hematoma. OTHER: No other significant finding. IMPRESSION: Mild chronic microvascular ischemia with no acute intracranial imaging finding. Left mi ddle cranial fossa arachnoid cyst. Sinus disease. Possible nasal polyposis. EVIDENCE OF ACUTE STROKE: NO. COMMENT: Quality ID # [id number]: Final reports with documentation of one or more dose reduction techniques (e.g., Automated exposure control, adjustment of the mA and/or kV according to patient size, use of iterative reconstruction technique) TECHNICAL DOCUMENTATION: JOB ID: [id number] [employer]- All Rights Reserved Reading location - IP/workstation name: [email or web address]
[2018-12-06] MEDS: INSULIN LISPRO 100 UNIT/ML 3 ML VIAL SUBCUT SCH (18:51)
[2018-12-06] MEDS: CEFTRIAXONE SODIUM 1,000 MG in DEXTROSE 5%-WATER 50 ML IV SCH (18:51)
[2018-12-06] MEDS: MIDAZOLAM HCL 50 MG/100 ML RTUINJ IV PRN ×2 (19:00→22:30)
[2018-12-06] MEDS: LOSARTAN POTASSIUM 25 MG TABLET PO SCH (21:33)
[2018-12-06] MEDS: ATORVASTATIN CALCIUM 40 MG TABLET PO SCH (21:34)
[2018-12-06] MEDS: ESMOLOL HCL/SOD CL 2,500 MG/250 ML RTUINJ IV PRN ×2 (21:36→23:30)
[2018-12-06] MEDS: ENOXAPARIN SODIUM INJ 120 MG/0.8 ML DISP.SYRIN SUBCUT SCH (21:46)
[2018-12-06] MEDS ORDERED: ATORVASTATIN CALCIUM 40 MG TABLET PO SCH (22:00)
[2018-12-06] MEDS ORDERED: (PENDING PHARMACY ID) (Rosuvastatin Calcium [Rosuvastatin Calcium] 20 MG) PO SCH (22:00)
[2018-12-07] MEDS: IPRATROPIUM BROMIDE 0.02% NEB 0.5 MG/2.5 ML AMPUL NEB SCH ×3 (00:23→16:14)
[2018-12-07] MEDS: LEVALBUTEROL HCL NEB 1.25 MG/3 ML AMPUL NEB SCH ×3 (00:23→16:14)
[2018-12-07] MEDS: ESMOLOL HCL/SOD CL 2,500 MG/250 ML RTUINJ IV PRN ×3 (01:00→03:52)
[2018-12-07] MEDS: INSULIN LISPRO 100 UNIT/ML 3 ML VIAL SUBCUT SCH ×4 (01:27→18:12)
[2018-12-07] MEDS: MIDAZOLAM HCL 50 MG/100 ML RTUINJ IV PRN (02:35)
[2018-12-07] MEDS ORDERED: DEXTROSE 5%-WATER 500 ML with AMIODARONE HCL 900 MG IV PRN ×2 (04:02)
[2018-12-07 04:24] LABS: HEMATOCRIT 52.2 % (37.9-51.0); HEMOGLOBIN 16.8 g/dL (13.5-17.0); MEAN CORPUSCULAR HEMOGLOBIN 28.4 pg (27.0-33.4); MEAN CORPUSCULAR HGB CONC 32.2 g/dL (32.0-36.0); MEAN CORPUSCULAR VOLUME 88 fl (80-97); RED BLOOD COUNT 5.93 10^6/uL (4.35-5.55); RED CELL DISTRIBUTION WIDTH 15.4 % (11.5-14.0); WHITE BLOOD COUNT 12.2 10^3/uL (4.0-10.5)
[2018-12-07 04:35] LABS: ANION GAP 10 (5-19); BLOOD UREA NITROGEN 40 mg/dL (7-20); CALCIUM 8.6 mg/dL (8.4-10.2); CARBON DIOXIDE 29 mmol/L (22-30); CHLORIDE 98 mmol/L (98-107); CHOLESTEROL 76.35 mg/dL (0-200); GLUCOSE 96 mg/dL (75-110); POTASSIUM 4.6 mmol/L (3.6-5.0); SODIUM 136.9 mmol/L (137-145); TRIGLYCERIDES 144 mg/dL (<150)
[2018-12-07 04:46] LABS: DIRECT LDL 40 mg/dL (<100)
[2018-12-07 04:48] LABS: ARTERIAL BLOOD BASE EXCESS 2.5 mmol/L; ARTERIAL BLOOD HCO3 26.7 mmol/L (20-24); ARTERIAL BLOOD O2 SATURATION 92.5 % (94-98); ARTERIAL BLOOD PH 7.44 (7.35-7.45); ARTERIAL BLOOD PO2 61.7 mmHg (80-100); ARTERIAL BLOOD TOTAL CO2 27.9 mmol/L (23-27)
[2018-12-07 04:49] LABS: ARTERIAL BLOOD FIO2 60%
[2018-12-07] MEDS ORDERED: AMIODARONE HCL INJ 150 MG/3 ML VIAL IV ONE ×2 (04:53→16:54)
[2018-12-07 05:00] LABS: PLATELET COUNT 229 10^3/uL (150-450)
[2018-12-07] MEDS ORDERED: AMIODARONE HCL 150 MG in DEXTROSE 5%-WATER 100 ML IV ONE (05:00)
[2018-12-07] MEDS ORDERED: SODIUM BICARBONATE 8.4% INJ 50 MEQ/50 ML DISP.SYRIN ONE (05:19)
[2018-12-07] MEDS ORDERED: GLUCAGON,HUMAN RECOMB 1 MG INJ ONE ×2 (05:22→05:23)
[2018-12-07] MEDS: DEXTROSE 5%-WATER 250 ML with NOREPINEPHRINE BITARTRATE 4 MG IV PRN ×4 (05:42→10:20)
--- NOTE | 2018-12-07 06:27 | RADIOLOGY REPORT (SQ) ---
EXAM DESCRIPTION: XR CHEST 1 VIEW COMPLETED DATE/TME: 12/07/2018 06:00 CLINICAL HISTORY: 63 years Male, ETT/OGT PLACEMENT COMPARISON: 2 days prior. NUMBER OF VIEWS/TECHNIQUE: 1/AP FINDINGS: Moderate mixed airspace and interstitial opacities. Tip of an endotracheal tube is 8 cm from the alina; recommend 3 cm advancement. Adequate appearing enteric tube partially obscured. Moderately enlarged cardiac silhouette. No pneumothorax. Stable bony thorax. IMPRESSION: Interval intubation.Tip of an endotracheal tube is 8 cm from the alina; recommend 3 cm advancement.
[2018-12-07] MEDS ORDERED: DOPAMINE HCL/DEXTROSE 5%-WATER 800 MG/250 ML RTUINJ IV ONE (06:53)
[2018-12-07] MEDS: DOPAMINE HCL 800 MG/D5W 250 ML IV PRN (07:00)
[2018-12-07] MEDS: BUDESONIDE NEB 0.5 MG/2 ML AMPUL NEB SCH ×2 (07:45→21:07)
--- NOTE | 2018-12-07 07:59 | EKG REPORT ---
SEVERITY:- ABNORMAL ECG - JUNCTIONAL TACHYCARDIA LOW VOLTAGE THROUGHOUT BORDERLINE T ABNORMALITIES, ANTERIOR LEADS : Confirmed by: Ese Chavez MD 07-Dec-2018 07:58:18
--- NOTE | 2018-12-07 07:59 | EKG REPORT ---
SEVERITY:- BORDERLINE ECG - SINUS RHYTHM LOW VOLTAGE THROUGHOUT BORDERLINE T ABNORMALITIES, ANT-LAT LEADS : Confirmed by: Ese Chavez MD 07-Dec-2018 07:58:12
--- NOTE | 2018-12-07 07:59 | EKG REPORT ---
SEVERITY:- ABNORMAL ECG - ATRIAL FLUTTER, A-RATE 306 MULTIFORM VENTRICULAR PREMATURE COMPLEXES LOW VOLTAGE IN FRONTAL LEADS NONSPECIFIC T ABNORMALITIES, LATERAL LEADS : Confirmed by: Ese Chavez MD 07-Dec-2018 07:58:26
[2018-12-07] MEDS: DEXTROSE 5%-WATER 250 ML with PHENYLEPHRINE HCL 40 MG IV PRN ×4 (08:32→10:20)
--- NOTE | 2018-12-07 10:28 | Operative Report ---
Nonrecallable Operative Report DATE OF SURGERY: 12/07/18 PREOPERATIVE DIAGNOSIS: Hypotension, cardiac arrhythmia, phlebosclerosis POSTOPERATIVE DIAGNOSIS: Same as above OPERATION: 1. Ultrasound-guided central venous puncture. 2. Left internal jugular vein central line placement SURGEON: JUANCARLOS DENNISON ANESTHESIA: Local TISSUE REMOVED OR ALTERED: None COMPLICATIONS: None apparent ESTIMATED BLOOD LOSS: Minimal PROCEDURE: Drains/implants: Left internal jugular vein central line placed at 15 cm. Procedure in detail: After informed consent was obtained from the patient's sister, the patient was laid in the Trendelenburg position in the intensive care unit. The area of the left neck and chest were prepped and draped in a normal sterile fashion. The ultrasound was used to identify the left internal jugular vein. It was compressible with normal flow. Under direct ultrasonic guidance, the internal jugular vein was cannulated with the supplied access needle. Dark venous, nonpulsatile blood was returned in the syringe. The wire was inserted into the vein easily. It was confirmed to be within the lumen of the vein using the ultrasound device. The catheter was then slid over the wire using a modified Seldinger technique. The catheter was sutured to the skin. The catheter was then aspirated and flushed x3. The aspirate was dark, venous blood that was nonpulsatile. A Biopatch and occlusive dressing were then placed. The procedure at this time was concluded. All sponge, instrument, and needle counts were correct. Condition: Critical in ICU.
[2018-12-07] MEDS ORDERED: NORMAL SALINE INJ/PF 0.9% 10 ML SDV IV PRN (10:53)
--- NOTE | 2018-12-07 11:07 | RADIOLOGY REPORT (SQ) ---
EXAM DESCRIPTION: CHEST SINGLE VIEW COMPLETED DATE/TIME: 12/07/2018 10:52 am REASON FOR STUDY: Central Line Placement COMPARISON: 12/07/2018 EXAM PARAMETERS: NUMBER OF VIEWS: One view. TECHNIQUE: Single frontal radiographic view of the chest acquired. RADIATION DOSE: NA LIMITATIONS: None. FINDINGS: LUNGS AND PLEURA: No pneumothorax. Pulmonary edema has increased. MEDIASTINUM AND HILAR STRUCTURES: No masses. Contour normal. HEART AND VASCULAR STRUCTURES: Cardiomegaly. BONES: No acute findings. HARDWARE: Endotracheal tube in good position. Left internal jugular catheter in place. OTHER: No other significant finding. IMPRESSION: Cardiomegaly with pulmonary edema. Endotracheal tube and internal jugular catheter as d escribed. TECHNICAL DOCUMENTATION: JOB ID: [id number] [employer]- All Rights Reserved Reading location - IP/workstation name: [email or web address]
[2018-12-07] MEDS: FAMOTIDINE 20 MG TABLET PO SCH ×2 (11:11→22:23)
[2018-12-07] MEDS: ASPIRIN 81 MG TABLET, ENT COATED PO SCH (11:11)
[2018-12-07] MEDS: SPIRONOLACTONE 25 MG TABLET PO SCH (11:11)
[2018-12-07] MEDS: CLOPIDOGREL BISULFATE 75 MG TABLET PO SCH (11:11)
[2018-12-07] MEDS: PREDNISONE 20 MG TABLET PO SCH (11:12)
[2018-12-07] MEDS: DOCUSATE SODIUM 100 MG CAPSULE PO SCH ×2 (11:12→17:58)
[2018-12-07] MEDS: ENOXAPARIN SODIUM INJ 120 MG/0.8 ML DISP.SYRIN SUBCUT SCH ×2 (11:12→22:17)
[2018-12-07] MEDS: FUROSEMIDE INJ/PF 20 MG/2 ML SDV IV SCH ×2 (11:12→22:23)
[2018-12-07] MEDS: CEFTRIAXONE SODIUM 1,000 MG in DEXTROSE 5%-WATER 50 ML IV SCH (11:12)
[2018-12-07] MEDS: METOPROLOL SUCCINATE 25 MG TAB.SR.24H PO SCH (11:13)
[2018-12-07 12:21] LABS: ARTERIAL BLOOD BASE EXCESS 4.3 mmol/L; ARTERIAL BLOOD FIO2 100%; ARTERIAL BLOOD H2CO3 2.02 mmol/L (1.05-1.35); ARTERIAL BLOOD HCO3 33.8 mmol/L (20-24); ARTERIAL BLOOD O2 SATURATION 83.9 % (94-98); ARTERIAL BLOOD PH 7.32 (7.35-7.45); ARTERIAL BLOOD PO2 53.1 mmHg (80-100); ARTERIAL BLOOD TOTAL CO2 35.9 mmol/L (23-27)
[2018-12-07] MEDS ORDERED: AMIODARONE HCL IV PRN ×6 (13:26→14:30)
[2018-12-07] MEDS ORDERED: WATER IV PRN ×6 (13:26→14:30)
[2018-12-07] MEDS ORDERED: DEXTROSE 5% IV PRN ×6 (13:26→14:30)
[2018-12-07] MEDS ORDERED: DEXTROSE 5%-WATER 250 ML with NOREPINEPHRINE BITARTRATE 8 MG IV PRN ×2 (13:40)
[2018-12-07] MEDS: DEXTROSE 5%-WATER 250 ML with PHENYLEPHRINE HCL 80 MG IV PRN ×4 (15:00→22:23)
[2018-12-07] MEDS ORDERED: NOREPINEPHRINE BITARTRATE INJ/PF 4 MG/4 ML SDV IV ONE (16:54)
[2018-12-07] MEDS ORDERED: EPINEPHRINE INJ 1 MG/10 ML DISP.SYRIN ONE (16:54)
--- NOTE | 2018-12-07 17:48 | ADVANCED CARE ---
- Diagnosis (1) Acute respiratory failure with hypoxia and hypercapnia Diagnosis Current: Yes (2) Acute on chronic congestive heart failure Diagnosis Current: Yes (3) Atrial flutter Diagnosis Current: Yes (4) Coronary artery disease Diagnosis Current: Yes (5) Diabetes mellitus type 2 in obese Diagnosis Current: Yes Resuscitation Status: Do Not Resuscitate Discussion: 12/07: Last night, patient went into A. fib with RVR while on esmolol drip. He was given IV amiodarone bolus and was started on amiodarone drip as well. Patient reportedly started developing bradycardia and went into PEA. Patient also required cardioversion which converted the A. fib into sinus rhythm. He required 15 minutes of chest compressions. Patient's family apparently came in and expressed he would have not wanted to be in the state. Upon encounter this morning, patient is currently requiring levophed and Jeancarlos- Synephrine. He is also on dopamine drip. Cardiology added amiodarone drip. He is not on sedation and is only minimally responsive to deep painful stimuli. Sister/DPGALLITO is at the bedside and expressed that she and the family wanted to switch him to a DO NOT RESUSCITATE status. She expressed that she will meet with the rest of the family but is leaning towards withdrawing care in the next 24 hours. Discussed comfort care measures in length and she is receptive to this. Possible comfort care measures tomorrow.
--- NOTE | 2018-12-07 17:51 | PDOC PROGRESS REPORT ---
Subjective Progress Note for:: 12/07/18 Subjective:: 12/06: Assumed care. This is a 63-year-old male who was admitted earlier today. He has a past medical history of CHF with unknown EF and COPD. Initially presented with oh 1 week history of increasing shortness of breath. In the ER, he was noted to be hypoxic, hypercapnic and tachycardic. CT did show congestion. He was initially placed on BiPAP was also given topical nitro and IV Lasix. Upon encounter this morning in the ICU, patient was noted to be obtunded. He is not arousable to painful stimuli. Stat ABG showed worsening PCO2 of 94. Patient was promptly intubated due to worsening hypercapnic respiratory failure. He was initially tachycardic and hypertensive. He was started on propofol and started dropping his pressures. This was switched to Versed and he was also started on low-dose Jeancarlos-Synephrine. 2D echo was also ordered. Later this afternoon, patient went into atrial flutter. He was started on Cardizem drip. Cardiology was also consulted and recommended switching Cardizem drip to a small drip due to low EF and echo. 12/07: Last night, patient went into A. fib with RVR while on esmolol drip. He was given IV amiodarone bolus and was started on amiodarone drip as well. Patient reportedly started developing bradycardia and went into PEA. Patient also required cardioversion which converted the A. fib into sinus rhythm. He required 15 minutes of chest compressions. Patient's family apparently came in and expressed he would have not wanted to be in the state. Upon encounter this morning, patient is currently requiring levophed and Jeancarlos- Synephrine. He is also on dopamine drip. Cardiology added amiodarone drip. He is not on sedation and is only minimally responsive to deep painful stimuli. Sister/DPGALLITO is at the bedside and expressed that she and the family wanted to switch him to a DO NOT RESUSCITATE status. She expressed that she will meet with the rest of the family but is leaning towards withdrawing care in the next 24 hours. Discussed comfort care measures in length and she is receptive to this. Possible comfort care measures tomorrow. Reason For Visit: ACUTE ON CHRONIC CONGESTIVE HEART FAILURE, ACUTE Physical Exam Vital Signs: Temp Pulse Resp BP Pulse Ox 100.6 F H 110 H 13 130/88 H 90 L 12/07/18 14:25 12/07/18 14:00 12/07/18 14:25 12/07/18 14:25 12/07/18 14:25 Intake & Output 12/06/18 12/07/18 12/08/18 06:59 06:59 06:59 Intake Total 2113 623 Output Total 1310 475 Balance 803 148 Weight 330 lb 11.094 oz 332 lb 3.786 oz General appearance: PRESENT: other - Not on sedation, slightly withdraws to pain on the painful stimuli Head exam: PRESENT: atraumatic, normocephalic Eye exam: PRESENT: conjunctiva pink, EOMI, PERRLA. ABSENT: scleral icterus Ear exam: PRESENT: normal external ear exam Mouth exam: PRESENT: moist, tongue midline Neck exam: ABSENT: carotid bruit, JVD, lymphadenopathy, thyromegaly Respiratory exam: PRESENT: rales, rhonchi. ABSENT: wheezes Cardiovascular exam: PRESENT: systolic murmur, tachycardia Pulses: PRESENT: normal dorsalis pedis pul GI/Abdominal exam: PRESENT: distended. ABSENT: ascites Rectal exam: PRESENT: deferred Neurological exam: PRESENT: other - Not on sedation, only slightly withdraws to deep painful stimuli Results Laboratory Results: 12/07/18 03:44 12/07/18 03:44 12/07/18 12/07/18 12/07/18 03:44 03:44 04:10 WBC 12.2 H RBC 5.93 H Hgb 16.8 Hct 52.2 H MCV 88 MCH 28.4 MCHC 32.2 RDW 15.4 H Plt Count 229 Carbonic Acid 1.20 HCO3/H2CO3 Ratio 22:1 ABG pH 7.44 ABG pCO2 40.0 ABG pO2 61.7 L ABG HCO3 26.7 H ABG O2 Saturation 92.5 L ABG Base Excess 2.5 FiO2 60% Sodium 136.9 L Potassium 4.6 Chloride 98 Carbon Dioxide 29 Anion Gap 10 BUN 40 H Creatinine 1.33 H Est GFR ( Amer) > 60 Est GFR (Non-Af Amer) 54 L Glucose 96 Calcium 8.6 Magnesium 2.1 Triglycerides 144 Cholesterol 76.35 LDL Cholesterol Direct 40 VLDL Cholesterol 29.0 HDL Cholesterol 23 L 12/07/18 11:55 WBC RBC Hgb Hct MCV MCH MCHC RDW Plt Count Carbonic Acid 2.02 H HCO3/H2CO3 Ratio 16:1 ABG pH 7.32 L ABG pCO2 67.0 H ABG pO2 53.1 L ABG HCO3 33.8 H ABG O2 Saturation 83.9 L ABG Base Excess 4.3 FiO2 100% Sodium Potassium Chloride Carbon Dioxide Anion Gap BUN Creatinine Est GFR ( Amer) Est GFR (Non-Af Amer) Glucose Calcium Magnesium Triglycerides Cholesterol LDL Cholesterol Direct VLDL Cholesterol HDL Cholesterol 12/05/18 12/05/18 12/05/18 22:04 22:04 22:04 Creatine Kinase 89 CK-MB (CK-2) 2.43 Troponin I 0.016 NT-Pro-B Natriuret Pep 1800 H Impressions: Chest/Abdomen CTA 12/05/18 00:00 IMPRESSION: Diffuse fluid overloaded state with pleural effusions, ascites and anasarca. Cardiomegaly with no aortic dissection or aneurysm. No pulmonary embolus. No definite acute inflammatory process in the abdomen or pelvis. Abdomen/Pelvis CTA 12/05/18 22:29 IMPRESSION: Diffuse fluid overloaded state with pleural effusions, ascites and anasarca. Cardiomegaly with no aortic dissection or aneurysm. No pulmonary embolus. No definite acute inflammatory process in the abdomen or pelvis. Abdomen Ultrasound 12/05/18 22:50 IMPRESSION: Bilateral upper quadrant ascites. KUB X-Ray 12/06/18 15:18 IMPRESSION: High position of nasogastric tube. Head CT 12/06/18 16:01 IMPRESSION: Mild chronic microvascular ischemia with no acute intracranial imaging finding. Left middle cranial fossa arachnoid cyst. Sinus disease. Possible nasal polyposis. EVIDENCE OF ACUTE STROKE: NO. Chest X-Ray 12/07/18 10:19 IMPRESSION: Cardiomegaly with pulmonary edema. Endotracheal tube and internal jugular catheter as described. Assessment and Plan - Diagnosis (1) Acute respiratory failure with hypoxia and hypercapnia Is this a current diagnosis for this admission?: Yes Plan: Currently intubated. Pulmonology following. (2) Cardiogenic shock Is this a current diagnosis for this admission?: Yes Plan: Currently on Levophed, dopamine drip and jeancarlos-drip. Also on amiodarone drip. Appreciate cardio recommendations. (3) PEA (Pulseless electrical activity) Is this a current diagnosis for this admission?: Yes Plan: S/P 15 minutes of ACLS last night. (4) Acute on chronic congestive heart failure Qualifiers: Heart failure type: unspecified Qualified Code(s): I50.9 - Heart failure, unspecified Is this a current diagnosis for this admission?: Yes Plan: Lasix currently on hold due to low blood pressures. (5) Atrial flutter Is this a current diagnosis for this admission?: Yes Plan: On amiodarone drip. (6) Coronary artery disease Qualifiers: Coronary Disease-Associated Artery/Lesion type: [place] artery [place] vs. transplanted heart: [place] heart Associated angina: without angina Qualified Code(s): I25.10 - Atherosclerotic heart disease of [place] coronary artery without angina pectoris Is this a current diagnosis for this admission?: Yes Plan: Continue aspirin and statin. (7) Diabetes mellitus type 2 in obese Is this a current diagnosis for this admission?: Yes Plan: Continue Accu-Cheks. Sliding scale for now. - Time Time Spent with patient: 35 or more minutes
--- NOTE | 2018-12-07 21:49 | Progress Note ---
Provider Note Provider Note: CARDIOLOGY PROGRESS NOTE by Dr. Ese Chavez on 12/07/2018. The patient's entire record has been reviewed including Dr. Lomeli's consultation. The patient remains in sinus tachycardia with no recurrence of atrial fibrillation on maintenance infusion of amiodarone. The patient's blood pressure is stable, but requires 3 inotropic agents. There is no ventricular arrhythmia seen on the monitor. PHYSICAL EXAMINATION: The patient is morbidly obese. He is sedated. He does not seem to be fighting the ventilator. Selected Entries 12/07/18 12/07/18 12/07/18 16:00 16:15 16:19 Temperature 100.8 F H 100.8 F H Temperature Core Source Pulse Rate 110 H Heart Rate ( 111 Monitors) Respiratory 13 13 Rate Blood Pressure Blood Pressure 127/81 H [Right Upper Arm] Blood Pressure Mean Blood Pressure 96 Mean [Right Upper Arm] O2 Sat by Pulse 90 L 92 Oximetry Oxygen Delivery Mechanical Method ( Ventilator includes room air) Fraction of 100 Inspired Oxygen (FIO2) 12/07/18 12/07/18 12/07/18 16:20 16:55 17:40 Temperature 100.8 F H 100.8 F H 101.1 F H Temperature Source Pulse Rate Heart Rate ( 110 116 Monitors) Respiratory 13 13 Rate Blood Pressure 132/93 H 123/78 127/86 H Blood Pressure [Right Upper Arm] Blood Pressure 93 99 Mean Blood Pressure Mean [Right Upper Arm] O2 Sat by Pulse 94 92 Oximetry Oxygen Delivery Method ( includes room air) Fraction of Inspired Oxygen 100% on mechanical ventilation. (FIO2) HEAD: Is atraumatic normocephalic. EYES: Pupils are regular reactive to light. ENT is negative. NECK is supple. There is mild JVD present. Carotids are equal there is no bruit. There is no lymphadenopathy. There is no goiter. There is no accessory muscles of respiration use. LUNGS: There is diminished air entry and prolonged expiration. There is a few scattered rhonchi. There is bibasilar rales of CHF.. There is hyperresonance on percussion. HEART: S1-S2 is heard. There is no S3 gallop. There is no S4 gallop. There is systolic murmur left sternal border and the apex. There is no rub. ABDOMEN: Is obese. Bowel sounds are heard. There is no hepatospleno megaly. EXTREMITIES: Femorals and deep. Femorals are diminished. There is no femoral bruits. Leg pulses slightly diminished. There is trace pedal edema bilaterally. There is no DVT or cellulitis. [employer]TE[employer] MAN and PSYCHIATRIC examination not performed due to the patient being intubated and sedated. Labs- All tests 24 hr 12/07/18 12/07/18 12/07/18 03:44 03:44 03:44 WBC 12.2 H RBC 5.93 H Hgb 16.8 Hct 52.2 H MCV 88 MCH 28.4 MCHC 32.2 RDW 15.4 H Plt Count 229 Carbonic Acid HCO3/H2CO3 Ratio ABG pH ABG pCO2 ABG pO2 ABG HCO3 ABG Total CO2 ABG O2 Saturation ABG Base Excess FiO2 Sodium 136.9 L Potassium 4.6 Chloride 98 Carbon Dioxide 29 Anion Gap 10 BUN 40 H Creatinine 1.33 H Est GFR ( Amer) > 60 Est GFR (Non-Af Amer) 54 L Glucose 96 POC Glucose Hemoglobin A1c % 8.9 H Calcium 8.6 Magnesium 2.1 Triglycerides 144 Cholesterol 76.35 LDL Cholesterol Direct 40 VLDL Cholesterol 29.0 HDL Cholesterol 23 L 12/07/18 12/07/18 12/07/18 04:10 05:29 11:55 WBC RBC Hgb Hct MCV MCH MCHC RDW Plt Count Carbonic Acid 1.20 2.02 H HCO3/H2CO3 Ratio 22:1 16:1 ABG pH 7.44 7.32 L ABG pCO2 40.0 67.0 H ABG pO2 61.7 L 53.1 L ABG HCO3 26.7 H 33.8 H ABG Total CO2 27.9 H 35.9 H ABG O2 Saturation 92.5 L 83.9 L ABG Base Excess 2.5 4.3 FiO2 60% 100% Sodium Potassium Chloride Carbon Dioxide Anion Gap BUN Creatinine Est GFR ( Amer) Est GFR (Non-Af Amer) Glucose POC Glucose 160 H Hemoglobin A1c % Calcium Magnesium Triglycerides Cholesterol LDL Cholesterol Direct VLDL Cholesterol HDL Cholesterol 12/07/18 12/07/18 13:02 18:03 WBC RBC Hgb Hct MCV MCH MCHC RDW Plt Count Carbonic Acid HCO3/H2CO3 Ratio ABG pH ABG pCO2 ABG pO2 ABG HCO3 ABG Total CO2 ABG O2 Saturation ABG Base Excess FiO2 Sodium Potassium Chloride Carbon Dioxide Anion Gap BUN Creatinine Est GFR ( Amer) Est GFR (Non-Af Amer) Glucose POC Glucose 190 H 157 H Hemoglobin A1c % Calcium Magnesium Triglycerides Cholesterol LDL Cholesterol Direct VLDL Cholesterol HDL Cholesterol Chest/Abdomen CTA 12/05/18 00:00 IMPRESSION: Diffuse fluid overloaded state with pleural effusions, ascites and anasarca. Cardiomegaly with no aortic dissection or aneurysm. No pulmonary embolus. No definite acute inflammatory process in the abdomen or pelvis. Chest X-Ray 12/05/18 21:52 IMPRESSION: Small bibasilar pneumonia-atelectasis and/or small right pleural effusion. Recommend CR/CT surveillance including at 7-12 weeks following initiation of any clinically warranted therapy. Abdomen/Pelvis CTA 12/05/18 22:29 IMPRESSION: Diffuse fluid overloaded state with pleural effusions, ascites and anasarca. Cardiomegaly with no aortic dissection or aneurysm. No pulmonary embolus. No definite acute inflammatory process in the abdomen or pelvis. Abdomen Ultrasound 12/05/18 22:50 IMPRESSION: Bilateral upper quadrant ascites. Chest X-Ray 12/06/18 10:12 IMPRESSION: 1. Slightly high position of nasogastric tube. Recommend advancing 6 to 7 cm. 2. Appropriate position of endotracheal tube. No pneumothorax. KUB X-Ray 12/06/18 10:14 IMPRESSION: 1. Slightly high position of nasogastric tube. Recommend advancing 6 to 7 cm. 2. Appropriate position of endotracheal tube. No pneumothorax. KUB X-Ray 12/06/18 15:18 IMPRESSION: High position of nasogastric tube. Head CT 12/06/18 16:01 IMPRESSION: Mild chronic microvascular ischemia with no acute intracranial imaging finding. Left middle cranial fossa arachnoid cyst. Sinus disease. Possible nasal polyposis. EVIDENCE OF ACUTE STROKE: NO. Chest X-Ray 12/07/18 06:00 IMPRESSION: Interval intubation.Tip of an endotracheal tube is 8 cm from the alina; recommend 3 cm advancement. Chest X-Ray 12/07/18 10:19 IMPRESSION: Cardiomegaly with pulmonary edema. Endotracheal tube and internal jugular catheter as described. IMPRESSION/RECOMMENDATION: 1. Acute on chronic respiratory failure: The patient still on 100% FiO2, with still the patient being hypercapnic and hypoxic. Continue ventilatory support 2. Cardiogenic shock: Note that the patient's blood pressure is now stable on Jeancarlos-Synephrine at 180 mcg/min, he is on Levophed now down to 6 mcg/min, and dopamine at 5 mcg/min. Note it has been successful in weaning the patient down to 6 mcg/min of Levophed. Continue slowly weaning off inotropes one by one. 3. Acute on chronic systolic heart failure: Continue diuretics. Need to use diuretics cautiously. Continue the supportive inotropic agents. 4. Paroxysmal atrial fibrillation: No recurrence on amiodarone infusion. Continue the same. Watch for any bradycardia. 5.. Pulseless electrical activity: No recurrence. This probably is related to metabolic acidosis. 6.. Fever:? Source of infection. Continue antibiotics. 7. Cardiomyopathy with moderately reduced LV ejection fraction of 35 to 40%. Continue current treatment, and later we will start the patient on beta-daija and CONCHIS inhibitor as and when the blood pressure permits. 8. Coronary artery disease: History of old DE. Later would recommend nitrates. 9. Diabetes mellitus: Continue Accu-Cheks every 6 hours with sliding scale insulin coverage. 10. COPD: Suspect acute exacerbation of COPD. Possibly the patient does have underlying pneumonia. Continue antibiotics. Medications reviewed. Case discussed with the attending physician and other caregiving providers on the case. Medical decision making is of high complexity. Note after the attending physician Dr. Cottrell discussed with the patient's sister the patient has been made a DNR. Note that the patient's sister is his surrogate healthcare decision maker. Will follow
[2018-12-07] MEDS: LOSARTAN POTASSIUM 25 MG TABLET PO SCH (22:17)
[2018-12-07] MEDS: ATORVASTATIN CALCIUM 40 MG TABLET PO SCH (22:23)
[2018-12-08] MEDS: LEVALBUTEROL HCL NEB 1.25 MG/3 ML AMPUL NEB SCH ×2 (00:25→08:08)
[2018-12-08] MEDS: IPRATROPIUM BROMIDE 0.02% NEB 0.5 MG/2.5 ML AMPUL NEB SCH ×2 (00:25→08:08)
[2018-12-08] MEDS: INSULIN LISPRO 100 UNIT/ML 3 ML VIAL SUBCUT SCH ×2 (00:31→06:37)
[2018-12-08] MEDS: DOPAMINE HCL 800 MG/D5W 250 ML IV PRN (01:00)
[2018-12-08] MEDS: MIDAZOLAM HCL 50 MG/100 ML RTUINJ IV PRN (04:00)
[2018-12-08 04:38] LABS: ABSOLUTE LYMPHOCYTES (AUTO) 0.9 10^3/uL (0.5-4.7); ABSOLUTE MONOCYTES (AUTO) 1.1 10^3/uL (0.1-1.4); ABSOLUTE NEUT (AUTO) 11.9 10^3/uL (1.7-8.2); BASOPHILS % (AUTO) 0.3 % (0-2); EOSINOPHILS % (AUTO) 0.1 % (0-6); HEMOGLOBIN 18.5 g/dL (13.5-17.0); LYMPHOCYTES % (AUTO) 6.2 % (13-45); MEAN CORPUSCULAR HEMOGLOBIN 28.6 pg (27.0-33.4); MEAN CORPUSCULAR HGB CONC 32.5 g/dL (32.0-36.0); MEAN CORPUSCULAR VOLUME 88 fl (80-97); MONOCYTES % (AUTO) 8.1 % (3-13); PLATELET COUNT 178 10^3/uL (150-450); RED BLOOD COUNT 6.48 10^6/uL (4.35-5.55); RED CELL DISTRIBUTION WIDTH 15.6 % (11.5-14.0); SEGMENTED NEUTROPHILS % (AUTO) 85.3 % (42-78); TOTAL CELLS COUNTED % (AUTO) 100 %
[2018-12-08 04:44] LABS: HEMATOCRIT 57.1 % (37.9-51.0)
[2018-12-08 04:51] LABS: ARTERIAL BLOOD BASE EXCESS 6.7 mmol/L; ARTERIAL BLOOD FIO2 100%; ARTERIAL BLOOD H2CO3 1.28 mmol/L (1.05-1.35); ARTERIAL BLOOD HCO3 31.2 mmol/L (20-24); ARTERIAL BLOOD O2 SATURATION 98.4 % (94-98); ARTERIAL BLOOD PCO2 42.5 mmHg (35-45); ARTERIAL BLOOD PH 7.48 (7.35-7.45); ARTERIAL BLOOD PO2 114.7 mmHg (80-100); ARTERIAL BLOOD TOTAL CO2 32.5 mmol/L (23-27)
[2018-12-08 05:10] LABS: ANION GAP 10 (5-19); BLOOD UREA NITROGEN 39 mg/dL (7-20); CALCIUM 8.8 mg/dL (8.4-10.2); CARBON DIOXIDE 34 mmol/L (22-30); CHLORIDE 94 mmol/L (98-107); GLUCOSE 157 mg/dL (75-110); POTASSIUM 3.7 mmol/L (3.6-5.0); SODIUM 138.3 mmol/L (137-145)
[2018-12-08] MEDS: BUDESONIDE NEB 0.5 MG/2 ML AMPUL NEB SCH (08:08)
--- NOTE | 2018-12-08 09:58 | RADIOLOGY REPORT (SQ) ---
EXAM DESCRIPTION: CHEST SINGLE VIEW COMPLETED DATE/TIME: 12/08/2018 8:08 am REASON FOR STUDY: resp failure/shock COMPARISON: CT chest 12/05/2018 Chest films 12/05/2018, 12/06/2018, 12/07/2018 EXAM PARAMETERS: NUMBER OF VIEWS: One view. TECHNIQUE: Single frontal radiographic view of the chest acquired. RADIATION DOSE: NA LIMITATIONS: None. FINDINGS: LUNGS AND PLEURA: Trace bilateral pleural effusions. Pulmonary edema pattern seen on 12/07 has partially cleared. Right and left retrocardiac atelectasis is present. No pneumothorax MEDIASTINUM AND HILAR STRUCTURES: No masses. Contour normal. HEART AND VASCULAR STRUCTURES: Heart normal in size. Normal vasculature. BONES: No acute findings. HARDWARE: Endotracheal tube tip is at the upper most edge of the field of view, above the clavicles, tip is likely just below the cords. This report was called to Crystal the patient's nurse in ICU 093 0 hours 12/08/2018. Nasogastric tube tip and side port in the stomach. Left jugular central line tip likely in the left brachiocephalic vein OTHER: No other significant finding. IMPRESSION: Infra pulmonary edema pattern Persistent retrocardiac consolidation Endotracheal tube tip is just below the vocal cords at the upper edge of the field of view. This fin ding was called to the patient's nurse in ICU TECHNICAL DOCUMENTATION: JOB ID: [id number] [employer]- All Rights Reserved Reading location - IP/workstation name: [email or web address]
--- NOTE | 2018-12-08 11:12 | PDOC CONSULTATION ---
Consultation Consult Date: 12/07/18 Attending physician:: LUZ MARIA PIKE Provider Consulted: ARIAS GOEL Consult reason:: s/p c-p arrest History of Present Illness Admission Date/PCP: 12/06/18 01:20 SOREN TSAI PA-C History of Present Illness: EULALIO LOBO is a 63 year old male admitted after he presented to the ER with 7 to 10 days increasing shortness of breath and a cough is an avid smoker started on BiPAP did fairly well was subsequently sent upstairs and had a cardiopulmonary arrest she is currently intubated sedated in ICU Past Medical History Cardiac Medical History: Reports: Congestive Heart Failure, Coronary Artery Disease, Myocardial Infarction - 08/2016, Hyperlipidema, Hypertension Denies: Atrial Fibrillation, DVT, Pulmonary Embolism Pulmonary Medical History: Reports: Chronic Obstructive Pulmonary Disease (COPD), Respiratory Failure Denies: Asthma EENT Medical History: Reports: Cataracts, Eyes - Dry eye syndrome Denies: Ears - Hearing aids Neurological Medical History: Reports: Ischemic CVA Denies: Hemorrhagic CVA, Multiple Sclerosis, Seizures Endocrine Medical History: Reports: Diabetes Mellitus Type 2 Denies: Diabetes Mellitus Type 1, Hyperthyroidism, Hypothyroidism Renal/ Medical History: Denies: Chronic Kidney Disease, Nephrolithiasis Malignancy Medical History: Reports: None GI Medical History: Denies: Cirrhosis, Crohn's Disease, Hepatitis, Hiatal Hernia, Ulcerative Colitis Musculoskeltal Medical History: Reports: Arthritis Denies: Gout Skin Medical History: Denies: Eczema, Psoriasis Psychiatric Medical History: Reports: Tobacco Dependency Denies: Alcohol Dependency, Substance Abuse Traumatic Medical History: Reports: None Hematology: Denies: Anemia, Sickle Cell Disease, Bleeding Tendencies Infectious Medical History: Reports: None Past Surgical History Past Surgical History: Reports: Cardiac Catheterization, Coronary Stent, Other - Cataract surgery Denies: Pacemaker Social History Information Source: [facility] Records Lives with: Alone, Spouse/Significant other Smoking Status: Current Every Day Smoker Cigarettes Packs Per Day: 1 Cigars Per Day: 0 Pipes Per Day: 0 Number of Years Smokin Last Time Smoked: 12/05/18 Frequency of Alcohol Use: Rare Hx Recreational Drug Use: No Drugs: None Hx Prescription Drug Abuse: No - Advance Directive Resuscitation Status: Full Code Family History Family History: DM, Hypertension, Malignancy Parental Family History Reviewed: No Children Family History Reviewed: No Sibling(s) Family History Reviewed.: No Medication/Allergy Home Medications: Clopidogrel Bisulfate [Clopidogrel] 75 mg PO DAILY 12/29/17 Losartan Potassium 25 mg PO QHS 12/29/17 Metformin HCl 1,000 mg PO BID 12/29/17 Metoprolol Succinate 12.5 mg PO DAILY 12/29/17 Rosuvastatin Calcium 20 mg PO QHS 12/29/17 Furosemide [Lasix 40 mg Tablet] 40 mg PO QAM 12/06/18 Allergies/Adverse Reactions: BRILINTA Adverse Reaction (Verified 01/04/18 07:11) Dizziness Review of Systems ROS unobtainable: Due to endotracheal tube, Due to mental status Physical Exam Vital Signs: Temp Pulse Resp BP Pulse Ox 99.9 F 115 H 17 139/87 H 90 L 12/07/18 08:01 12/07/18 08:00 12/07/18 08:01 12/07/18 08:00 12/07/18 08:01 Intake & Output 12/06/18 12/07/18 12/08/18 06:59 06:59 06:59 Intake Total 2111 Output Total 1310 75 Balance 801 -75 Weight 150 kg 150.7 kg General appearance: PRESENT: no acute distress, disheveled, morbidly obese. ABSENT: cooperative Head exam: PRESENT: atraumatic, normocephalic Eye exam: PRESENT: conjunctiva pale. ABSENT: EOMI, nystagmus, scleral icterus Mouth exam: PRESENT: dry mucosa, neck supple, tongue midline, other - Endotracheal tube Neck exam: ABSENT: carotid bruit, full ROM, JVD, lymphadenopathy, meningismus, tenderness, thyromegaly, tracheal deviation, tracheostomy, other Respiratory exam: PRESENT: decreased breath sounds, prolonged expiratory phas, rales, rhonchi, unlabored, wheezes. ABSENT: retraction, stridor Cardiovascular exam: PRESENT: RRR, +S1, +S2, tachycardia Pulses: PRESENT: normal radial pulses GI/Abdominal exam: PRESENT: soft. ABSENT: mass, tenderness Extremities exam: PRESENT: +1 edema. ABSENT: calf tenderness, clubbing, joint swelling Musculoskeletal exam: ABSENT: ambulatory, deformity, dislocation Neurological exam: ABSENT: awake Skin exam: PRESENT: dry, warm Results Laboratory Results: 12/07/18 03:44 12/07/18 03:44 12/05/18 12/06/18 12/06/18 22:04 03:24 09:10 WBC RBC Hgb Hct MCV MCH MCHC RDW Plt Count Carbonic Acid 2.86 H HCO3/H2CO3 Ratio 12:1 ABG pH 7.18 L* ABG pCO2 95.0 H* ABG pO2 105.3 H ABG HCO3 34.8 H ABG O2 Saturation 96.1 ABG Base Excess 1.7 FiO2 70% Sodium Potassium Chloride Carbon Dioxide Anion Gap BUN Creatinine Est GFR ( Amer) Est GFR (Non-Af Amer) Glucose Calcium Magnesium Triglycerides 155 H Cholesterol LDL Cholesterol Direct VLDL Cholesterol HDL Cholesterol Urine Color YELLOW Urine Appearance SLIGHTLY-CLOUDY Urine pH 5.0 Ur Specific [place] 1.026 Urine Protein 30 H Urine Glucose (UA) NEGATIVE Urine Ketones NEGATIVE Urine Blood SMALL H Urine Nitrite NEGATIVE Ur Leukocyte Esterase NEGATIVE Urine WBC (Auto) 3 12/06/18 12/07/18 12/07/18 12:25 03:44 03:44 WBC 12.2 H RBC 5.93 H Hgb 16.8 Hct 52.2 H MCV 88 MCH 28.4 MCHC 32.2 RDW 15.4 H Plt Count 229 Carbonic Acid 1.63 H HCO3/H2CO3 Ratio 19:1 ABG pH 7.39 ABG pCO2 54.2 H ABG pO2 71.1 L ABG HCO3 32.1 H ABG O2 Saturation 93.9 L ABG Base Excess 5.2 FiO2 60% Sodium 136.9 L Potassium 4.6 Chloride 98 Carbon Dioxide 29 Anion Gap 10 BUN 40 H Creatinine 1.33 H Est GFR ( Amer) > 60 Est GFR (Non-Af Amer) 54 L Glucose 96 Calcium 8.6 Magnesium 2.1 Triglycerides 144 Cholesterol 76.35 LDL Cholesterol Direct 40 VLDL Cholesterol 29.0 HDL Cholesterol 23 L Urine Color Urine Appearance Urine pH Ur Specific [place] Urine Protein Urine Glucose (UA) Urine Ketones Urine Blood Urine Nitrite Ur Leukocyte Esterase Urine WBC (Auto) 12/07/18 04:10 WBC RBC Hgb Hct MCV MCH MCHC RDW Plt Count Carbonic Acid 1.20 HCO3/H2CO3 Ratio 22:1 ABG pH 7.44 ABG pCO2 40.0 ABG pO2 61.7 L ABG HCO3 26.7 H ABG O2 Saturation 92.5 L ABG Base Excess 2.5 FiO2 60% Sodium Potassium Chloride Carbon Dioxide Anion Gap BUN Creatinine Est GFR ( Amer) Est GFR (Non-Af Amer) Glucose Calcium Magnesium Triglycerides Cholesterol LDL Cholesterol Direct VLDL Cholesterol HDL Cholesterol Urine Color Urine Appearance Urine pH Ur Specific [place] Urine Protein Urine Glucose (UA) Urine Ketones Urine Blood Urine Nitrite Ur Leukocyte Esterase Urine WBC (Auto) 12/05/18 12/05/18 12/05/18 22:04 22:04 22:04 Creatine Kinase 89 CK-MB (CK-2) 2.43 Troponin I 0.016 NT-Pro-B Natriuret Pep 1800 H Impressions: Chest/Abdomen CTA 12/05/18 00:00 IMPRESSION: Diffuse fluid overloaded state with pleural effusions, ascites and anasarca. Cardiomegaly with no aortic dissection or aneurysm. No pulmonary embolus. No definite acute inflammatory process in the abdomen or pelvis. Abdomen/Pelvis CTA 12/05/18 22:29 IMPRESSION: Diffuse fluid overloaded state with pleural effusions, ascites and anasarca. Cardiomegaly with no aortic dissection or aneurysm. No pulmonary embolus. No definite acute inflammatory process in the abdomen or pelvis. Abdomen Ultrasound 12/05/18 22:50 IMPRESSION: Bilateral upper quadrant ascites. KUB X-Ray 12/06/18 15:18 IMPRESSION: High position of nasogastric tube. Head CT 12/06/18 16:01 IMPRESSION: Mild chronic microvascular ischemia with no acute intracranial imaging finding. Left middle cranial fossa arachnoid cyst. Sinus disease. Possible nasal polyposis. EVIDENCE OF ACUTE STROKE: NO. Chest X-Ray 12/07/18 06:00 IMPRESSION: Interval intubation.Tip of an endotracheal tube is 8 cm from the alina; recommend 3 cm advancement. Assessment & Plan - Diagnosis (1) Acute on chronic congestive heart failure Qualifiers: Heart failure type: unspecified Qualified Code(s): I50.9 - Heart failure, unspecified Is this a current diagnosis for this admission?: Yes Plan: central line for CVP and vasoactive drugs or pulmonary artery catheter (2) Acute on chronic respiratory failure with hypoxia and hypercapnia Is this a current diagnosis for this admission?: Yes Plan: Mechanical ventilation as needed (3) Atrial fibrillation with rapid ventricular response Is this a current diagnosis for this admission?: Yes Plan: Stable at this time (4) Cardiogenic shock Is this a current diagnosis for this admission?: Yes Plan: Plan was for CVP or pulmonary catheter (5) Hypertension Qualifiers: Hypertension type: essential hypertension Qualified Code(s): I10 - Essential (primary) hypertension Is this a current diagnosis for this admission?: Yes Plan: 3 Vasopressor agents (6) Morbid obesity Is this a current diagnosis for this admission?: Yes Plan: When stable consider nutritional consult - Time Total Critical Time (Minutes): 55
[2018-12-08] MEDS: SPIRONOLACTONE 25 MG TABLET PO SCH (11:43)
[2018-12-08] MEDS: PREDNISONE 20 MG TABLET PO SCH (11:43)
[2018-12-08] MEDS: ASPIRIN 81 MG TABLET, ENT COATED PO SCH (11:44)
[2018-12-08] MEDS: FAMOTIDINE 20 MG TABLET PO SCH (11:44)
[2018-12-08] MEDS: FUROSEMIDE INJ/PF 20 MG/2 ML SDV IV SCH (11:44)
[2018-12-08] MEDS: CLOPIDOGREL BISULFATE 75 MG TABLET PO SCH (11:44)
[2018-12-08] MEDS: DOCUSATE SODIUM 100 MG CAPSULE PO SCH (11:44)
[2018-12-08] MEDS: METOPROLOL SUCCINATE 25 MG TAB.SR.24H PO SCH (11:45)
[2018-12-08] MEDS: CEFTRIAXONE SODIUM 1,000 MG in DEXTROSE 5%-WATER 50 ML IV SCH (11:45)
[2018-12-08] MEDS: ENOXAPARIN SODIUM INJ 120 MG/0.8 ML DISP.SYRIN SUBCUT SCH (11:45)
[2018-12-08] MEDS ORDERED: LORAZEPAM INJ 2 MG/1 ML VIAL IV PRN (11:54)
[2018-12-08] MEDS ORDERED: MORPHINE SULFATE 10 MG/ML INJ IV PRN (11:55)
[2018-12-08] MEDS ORDERED: ONDANSETRON HCL INJ/PF 4 MG/2 ML SDV IV PRN (12:30)
[2018-12-08 14:38] VITALS: BP 149/94
--- NOTE | 2018-12-08 15:01 | PDOC PROGRESS REPORT ---
Subjective Progress Note for:: 12/08/18 Subjective:: 12/06: Assumed care. This is a 63-year-old male who was admitted earlier today. He has a past medical history of CHF with unknown EF and COPD. Initially presented with oh 1 week history of increasing shortness of breath. In the ER, he was noted to be hypoxic, hypercapnic and tachycardic. CT did show congestion. He was initially placed on BiPAP was also given topical nitro and IV Lasix. Upon encounter this morning in the ICU, patient was noted to be obtunded. He is not arousable to painful stimuli. Stat ABG showed worsening PCO2 of 94. Patient was promptly intubated due to worsening hypercapnic respiratory failure. He was initially tachycardic and hypertensive. He was started on propofol and started dropping his pressures. This was switched to Versed and he was also started on low-dose Jeancarlos-Synephrine. 2D echo was also ordered. Later this afternoon, patient went into atrial flutter. He was started on Cardizem drip. Cardiology was also consulted and recommended switching Cardizem drip to a small drip due to low EF and echo. 12/07: Last night, patient went into A. fib with RVR while on esmolol drip. He was given IV amiodarone bolus and was started on amiodarone drip as well. Patient reportedly started developing bradycardia and went into PEA. Patient also required cardioversion which converted the A. fib into sinus rhythm. He required 15 minutes of chest compressions. Patient's family apparently came in and expressed he would have not wanted to be in the state. Upon encounter this morning, patient is currently requiring levophed and Jeancarlos- Synephrine. He is also on dopamine drip. Cardiology added amiodarone drip. He is not on sedation and is only minimally responsive to deep painful stimuli. SisterFIDEL is at the bedside and expressed that she and the family wanted to switch him to a DO NOT RESUSCITATE status. She expressed that she will meet with the rest of the family but is leaning towards withdrawing care in the next 24 hours. Discussed comfort care measures in length and she is receptive to this. Possible comfort care measures tomorrow. 12/08: No acute event overnight. Patient remains intubated. No response today even on painful stimuli and off sedation. SisterFIDEL is on bedside wants to proceed with comfort measures today. Discussed case with Dr. Gallo who agrees to plan to transition to comfort measures. Reason For Visit: ACUTE ON CHRONIC CONGESTIVE HEART FAILURE, ACUTE Physical Exam Vital Signs: Temp Pulse Resp BP Pulse Ox 101.3 F H 112 H 15 149/94 H 98 12/08/18 14:11 12/08/18 12:00 12/08/18 14:11 12/08/18 14:11 12/08/18 14:11 Intake & Output 12/07/18 12/08/18 12/09/18 06:59 06:59 06:59 Intake Total 2113 2502 Output Total 1310 2800 1200 Balance 803 -298 -1200 Weight 332 lb 3.786 oz 327 lb 6.183 oz General appearance: PRESENT: other - Intubated Head exam: PRESENT: atraumatic, normocephalic Eye exam: PRESENT: conjunctiva pink, EOMI, PERRLA. ABSENT: scleral icterus Ear exam: PRESENT: normal external ear exam Mouth exam: PRESENT: moist, tongue midline Neck exam: ABSENT: carotid bruit, JVD, lymphadenopathy, thyromegaly Respiratory exam: PRESENT: rales, rhonchi Cardiovascular exam: PRESENT: RRR. ABSENT: diastolic murmur, rubs, systolic mu rmur Pulses: PRESENT: normal dorsalis pedis pul GI/Abdominal exam: PRESENT: normal bowel sounds, soft. ABSENT: distended, guarding, mass, organolmegaly, rebound, tenderness Rectal exam: PRESENT: deferred Neurological exam: PRESENT: other - Intubated Results Laboratory Results: 12/08/18 04:20 12/08/18 04:20 12/08/18 12/08/18 12/08/18 04:20 04:20 04:20 WBC 14.0 H RBC 6.48 H Hgb 18.5 H Hct 57.1 H MCV 88 MCH 28.6 MCHC 32.5 RDW 15.6 H Plt Count 178 Seg Neutrophils % 85.3 H Lymphocytes % 6.2 L Monocytes % 8.1 Eosinophils % 0.1 Basophils % 0.3 Absolute Neutrophils 11.9 H Absolute Lymphocytes 0.9 Absolute Monocytes 1.1 Absolute Eosinophils 0.0 Absolute Basophils 0.0 Carbonic Acid 1.28 HCO3/H2CO3 Ratio 24:1 ABG pH 7.48 H ABG pCO2 42.5 ABG pO2 114.7 H ABG HCO3 31.2 H ABG O2 Saturation 98.4 H ABG Base Excess 6.7 FiO2 100% Sodium 138.3 Potassium 3.7 Chloride 94 L Carbon Dioxide 34 H Anion Gap 10 BUN 39 H Creatinine 1.38 H Est GFR ( Amer) > 60 Est GFR (Non-Af Amer) 52 L Glucose 157 H Calcium 8.8 Magnesium 2.0 12/06/18 03:24 Catheterized Urine Urine Culture - Final Enterococcus Faecalis(Group D) 12/06/18 10:50 Tracheal Aspirate Gram Stain - Final 12/06/18 10:50 Tracheal Aspirate Sputum Culture - Final NORMAL IVELISSE 12/05/18 12/05/18 12/05/18 22:04 22:04 22:04 Creatine Kinase 89 CK-MB (CK-2) 2.43 Troponin I 0.016 NT-Pro-B Natriuret Pep 1800 H Impressions: Chest/Abdomen CTA 12/05/18 00:00 IMPRESSION: Diffuse fluid overloaded state with pleural effusions, ascites and anasarca. Cardiomegaly with no aortic dissection or aneurysm. No pulmonary embolus. No definite acute inflammatory process in the abdomen or pelvis. Abdomen/Pelvis CTA 12/05/18 22:29 IMPRESSION: Diffuse fluid overloaded state with pleural effusions, ascites and anasarca. Cardiomegaly with no aortic dissection or aneurysm. No pulmonary embolus. No definite acute inflammatory process in the abdomen or pelvis. Abdomen Ultrasound 12/05/18 22:50 IMPRESSION: Bilateral upper quadrant ascites. KUB X-Ray 12/06/18 15:18 IMPRESSION: High position of nasogastric tube. Head CT 12/06/18 16:01 IMPRESSION: Mild chronic microvascular ischemia with no acute intracranial imaging finding. Left middle cranial fossa arachnoid cyst. Sinus disease. Possible nasal polyposis. EVIDENCE OF ACUTE STROKE: NO. Chest X-Ray 12/08/18 06:00 IMPRESSION: Infra pulmonary edema pattern Persistent retrocardiac consolidation Endotracheal tube tip is just below the vocal cords at the upper edge of the field of view. This finding was called to the patient's nurse in ICU Assessment and Plan - Diagnosis (1) Acute respiratory failure with hypoxia and hypercapnia Is this a current diagnosis for this admission?: Yes Plan: Will transition to comfort measures. (2) Cardiogenic shock Is this a current diagnosis for this admission?: Yes Plan: As per number 1. (3) PEA (Pulseless electrical activity) Is this a current diagnosis for this admission?: Yes Plan: As per number 1. (4) Acute on chronic congestive heart failure Qualifiers: Heart failure type: systolic Qualified Code(s): I50.23 - Acute on chronic systolic (congestive) heart failure Is this a current diagnosis for this admission?: Yes Plan: Lasix currently on hold due to low blood pressures. (5) Atrial flutter Is this a current diagnosis for this admission?: Yes (6) Coronary artery disease Qualifiers: Coronary Disease-Associated Artery/Lesion type: [place] artery [place] vs. transplanted heart: [place] heart Associated angina: without angina Qualified Code(s): I25.10 - Atherosclerotic heart disease of [place] coronary artery without angina pectoris Is this a current diagnosis for this admission?: Yes (7) Diabetes mellitus type 2 in obese Is this a current diagnosis for this admission?: Yes - Time Time Spent with patient: 25-34 minutes
--- NOTE | 2018-12-08 23:42 | Progress Note ---
Provider Note Provider Note: Cardiology progress note by Dr. Ese Diaz on 12/08/2018. Note that the patient made the patient comfort measures. Soon after the patient was extubated the patient . Hence cardiology follow-up rounds not done. Will not charge the patient.
--- NOTE | 2018-12-09 18:02 | Death Summary ---
Summary Date : 12/08/18 Autopsy: No Resuscitation Status: Comfort Measures Only - Final Diagnosis (1) Acute respiratory failure with hypoxia and hypercapnia Is this a current diagnosis for this admission?: Yes (2) Cardiogenic shock Is this a current diagnosis for this admission?: Yes (3) PEA (Pulseless electrical activity) Is this a current diagnosis for this admission?: Yes (4) Acute on chronic congestive heart failure Is this a current diagnosis for this admission?: Yes (5) Atrial flutter Is this a current diagnosis for this admission?: Yes (6) Coronary artery disease Is this a current diagnosis for this admission?: Yes (7) Diabetes mellitus type 2 in obese Is this a current diagnosis for this admission?: Yes Hospital Course:: This is a 63-year-old male who was admitted earlier today. He has a past medical history of CHF with unknown EF and COPD. Initially presented with oh 1 week history of increasing shortness of breath. In the ER, he was noted to be hypoxic, hypercapnic and tachycardic. CT did show congestion. He was initially placed on BiPAP was also given topical nitro and IV Lasix. 12/06: Upon encounter this morning in the ICU, patient was noted to be obtunded. He is not arousable to painful stimuli. Stat ABG showed worsening PCO2 of 94. Patient was promptly intubated due to worsening hypercapnic respiratory failure. He was initially tachycardic and hypertensive. He was started on propofol and started dropping his pressures. This was switched to Versed and he was also started on low-dose Jeancarlos-Synephrine. 2D echo was also ordered. Later this afternoon, patient went into atrial flutter. He was started on Cardizem drip. Cardiology was also consulted and recommended switching Cardizem drip to a small drip due to low EF and echo. 12/07: Last night, patient went into A. fib with RVR while on esmolol drip. He was given IV amiodarone bolus and was started on amiodarone drip as well. Patient reportedly started developing bradycardia and went into PEA. Patient also required cardioversion which converted the A. fib into sinus rhythm. He required 15 minutes of chest compressions. Patient's family apparently came in and expressed he would have not wanted to be in the state. Upon encounter this morning, patient is currently requiring levophed and Jeancarlos- Synephrine. He is also on dopamine drip. Cardiology added amiodarone drip. He is not on sedation and is only minimally responsive to deep painful stimuli. Sister/LA NENA is at the bedside and expressed that she and the family wanted to switch him to a DO NOT RESUSCITATE status. She expressed that she will meet with the rest of the family but is leaning towards withdrawing care in the next 24 hours. Discussed comfort care measures in length and she is receptive to this. Possible comfort care measures tomorrow. 12/08: No acute event overnight. Patient remains intubated. No response today even on painful stimuli and off sedation. Sister/LA NENA is on bedside wants to proceed with comfort measures today. Discussed case with Dr. Gallo who agrees to plan to transition to comfort measures. Patient was extubated and within a few minutes. Time of : 3:14 PM.
== END 2018-12-08 15:14 | disposition left against medical advice (07) | DRG 208 ==
LOC: ER 21:33 → EH 12-06 01:20 → ICU 12-06 06:58
PROVIDERS: ADMIT Emergency Medicine; ATTEND Emergency Medicine
PROC: 5A09357 Assistance with Respiratory Ventilation, Less than 24 Consecutive Hours, Continuous Positive Airway Pressure (ICD-10-PCS; 2018-12-05)
PROC: 5A1945Z Respiratory Ventilation, 24-96 Consecutive Hours (ICD-10-PCS; principal; 2018-12-06)
PROC: 0BH17EZ Insertion of Endotracheal Airway into Trachea, Via Natural or Artificial Opening (ICD-10-PCS; 2018-12-06)
PROC: 05HN33Z Insertion of Infusion Device into Left Internal Jugular Vein, Percutaneous Approach (ICD-10-PCS; 2018-12-07)
PROC: B544ZZA Ultrasonography of Left Jugular Veins, Guidance (ICD-10-PCS; 2018-12-07)
DX: J96.02 Acute respiratory failure with hypercapnia (principal); I50.23 Acute on chronic systolic (congestive) heart failure; E87.2 Acidosis; N17.9 Acute kidney failure, unspecified; R18.8 Other ascites; J44.1 Chronic obstructive pulmonary disease with (acute) exacerbation; I48.92 Unspecified atrial flutter; Z68.43 Body mass index [BMI] 50.0-59.9, adult; J96.01 Acute respiratory failure with hypoxia; E78.5 Hyperlipidemia, unspecified; R57.0 Cardiogenic shock; I48.0 Paroxysmal atrial fibrillation; I11.0 Hypertensive heart disease with heart failure; I25.10 Atherosclerotic heart disease of native coronary artery without angina pectoris; I25.5 Ischemic cardiomyopathy; E11.8 Type 2 diabetes mellitus with unspecified complications; F17.210 Nicotine dependence, cigarettes, uncomplicated; E66.01 Morbid (severe) obesity due to excess calories; Z60.2 Problems related to living alone; Z86.73 Personal history of transient ischemic attack (TIA), and cerebral infarction without residual deficits; Z71.6 Tobacco abuse counseling; Z79.84 Long term (current) use of oral hypoglycemic drugs; Z79.82 Long term (current) use of aspirin; Z79.899 Other long term (current) drug therapy
CPT/HCPCS: 31500; 36415; 36600; 70450; 71045; 71275; 74018; 74174; 76705; 80048; 80053; 80061; 81001; 82550; 82553; 82803; 82962; 83036; 83605; 83735; 83880; 84439; 84443; 84478; 84481; 84484; 85025; 85027; 85610; 85730; 87040; 87070; 87086; 87088; 87186; 87205; 93005; 93010; 93306; 94002; 94003; 94660; 99291; 99406; C1751; J0171; J0282; J0330; J0696; J1160; J1265; J1650; J1940; J2060; J2250; J2270; J2370; J2704; J3490; J7060; J7512